=== PATIENT | female | born 1955 | race Caucasian/White ===

== ENCOUNTER 2022-02-27 20:23 | Inpatient (IN) | payer OTHER, BC ==
[2022-02-27] MEDS ORDERED: METHYLPREDNISOLONE 125 MG INJ ONE (21:57)
[2022-02-27] MEDS ORDERED: NA CHLORIDE 0.9% 1,000 ML ONE (21:57)
[2022-02-27] MEDS ORDERED: ALBUTEROL 2.5 MG/3 ML NEB SOL ONE (21:57)
[2022-02-27] MEDS ORDERED: IPRATROPIUM BROM 0.5MG/2.5ML ONE (21:57)
[2022-02-27] MEDS ORDERED: PANTOPRAZOLE 40 MG INJ ONE (21:57)
[2022-02-27] MEDS ORDERED: Levofloxacin 750mg IV 750 MG/150 ML BAG IV ONE (21:58)
--- NOTE | 2022-02-27 22:31 | EDPHYS ---
Physician Documentation [facility] Name: Tammy Bess Age: 66 yrs Sex: Female : 1955 Arrival Date: 02/27/2022 Time: 20:25 Bed 19 Private MD: ED Physician Jamison Campos HPI: 02/27 21:14 This 66 yrs old Female presents to ER via Ambulatory with complaints of Nose radha Bleed. 21:14 The patient presents with a nose bleed, that is apparently anterior, from the right radha nare, occurred from an unknown cause, that is moderate amount causative factors include: unknown. Onset: The symptoms/episode began/occurred just prior to arrival. Modifying factors: The symptoms are alleviated by nothing. the symptoms are aggravated by nothing. Associated signs and symptoms: The patient has no apparent associated signs or symptoms. Severity of symptoms: At their worst the symptoms were moderate in the emergency department the symptoms are unchanged. The patient has not experienced similar symptoms in the past. Historical: - Allergies: 20:40 No Known Allergies; bm7 - PMHx: 20:40 Asthma; Hypertensive disorder; hiatal hernia; bm7 - PSHx: 20:40 None; bm7 - Immunization history:: Adult Immunizations up to date, Client reports receiving the 2nd dose of the Covid vaccine, Client reports receiving the 1st dose of the Covid vaccine. - Social history:: Smoking status: Patient denies any tobacco usage or history of. ROS: 21:15 Constitutional: Negative for fever, chills, and weight loss, Eyes: Negative for injury, radha pain, redness, and discharge, Neck: Negative for injury, pain, and swelling, Cardiovascular: Negative for chest pain, palpitations, and edema, Abdomen/GI: Negative for abdominal pain, nausea, vomiting, diarrhea, and constipation, Back: Negative for injury and pain, : Negative for injury, bleeding, discharge, and swelling, MS/Extremity: Negative for injury and deformity, Skin: Negative for injury, rash, and discoloration, Neuro: Negative for headache, weakness, numbness, tingling, and seizure, Psych: Negative for depression, anxiety, suicide ideation, homicidal ideation, and hallucinations, Allergy/Immunology: Negative for hives, rash, and allergies, Endocrine: Negative for neck swelling, polydipsia, polyuria, polyphagia, and marked weight changes, Hematologic/Lymphatic: Negative for swollen nodes, abnormal bleeding, and unusual bruising. 21:15 ENT: Positive for nose bleed, sinus congestion. 21:15 Respiratory: Positive for cough, shortness of breath. Exam: 21:15 Constitutional: This is a well developed, well nourished patient who is awake, alert, radha and in no acute distress. Head/Face: Normocephalic, atraumatic. Eyes: Pupils equal round and reactive to light, extra-ocular motions intact. Lids and lashes normal. Conjunctiva and sclera are non-icteric and not injected. Cornea within normal limits. Periorbital areas with no swelling, redness, or edema. Neck: Trachea midline, no thyromegaly or masses palpated, and no cervical lymphadenopathy. Supple, full range of motion without nuchal rigidity, or vertebral point tenderness. No Meningismus. Chest/axilla: Normal chest wall appearance and motion. Nontender with no deformity. No lesions are appreciated. Cardiovascular: Regular rate and rhythm with a normal S1 and S2. No gallops, murmurs, or rubs. Normal PMI, no JVD. No pulse deficits. Abdomen/GI: Soft, non-tender, with normal bowel sounds. No distension or tympany. No guarding or rebound. No evidence of tenderness throughout. Back: No spinal tenderness. No costovertebral tenderness. Full range of motion. Female : Normal external genitalia. Skin: Warm, dry with normal turgor. Normal color with no rashes, no lesions, and no evidence of cellulitis. MS/ Extremity: Pulses equal, no cyanosis. Neurovascular intact. Full, normal range of motion. Neuro: Awake and alert, GCS 15, oriented to person, place, time, and situation. Cranial nerves II-XII grossly intact. Motor strength 5/5 in all extremities. Sensory grossly intact. Cerebellar exam normal. Normal gait. Psych: Awake, alert, with orientation to person, place and time. Behavior, mood, and affect are within normal limits. 21:15 ENT: Nose: clotted blood, in right nare, Posterior pharynx: no acute changes, Airway: normal, no evidence of obstruction. 21:15 Cardiovascular: Rate: normal, Rhythm: regular, Pulses: Pulses are 4+ in bilateral radial, brachial, femoral, popliteal, posterior tibial and and dorsalis pedis arteries.. Heart sounds: normal, normal S1and S2, no S3 or S4, no murmur, no rub, no gallop, Edema: is not appreciated, JVD: is not appreciated. 21:15 Respiratory: the patient does not display signs of respiratory distress, Respirations: normal, no acute changes, labored breathing, is not present, Breath sounds: rales, that are moderate, are heard in the right posterior middle lobe and right posterior lower lobe, decreased breath sounds, that are mild, rhonchi, that are mild, are scattered, stridor, is not appreciated, + upper airway congestion. Respiratory rate: 22 23:18 ECG was reviewed by the Attending Physician. [facility] Vital Signs: 20:38 BP 132 / 80; Pulse 90; Resp 20; Temp 99.4(TE); Pulse Ox 94% on R/A; Weight 63.96 kg bm7 (R); Height 5 ft. 6 in. (167.64 cm); Pain 0/10; 23:35 BP 149 / 82; Pulse 102; Resp 23; Pulse Ox 97% on R/A; ja4 20:38 Body Mass Index 22.76 (63.96 kg, 167.64 cm) bm7 Margret Coma Score: 22:50 Eye Response: spontaneous(4). Verbal Response: oriented(5). Motor Response: obeys ja4 commands(6). Total: 15. MDM: 20:55 Patient medically screened. radha 21:19 Differential diagnosis: nasal fracture, trauma, sinusitis, spontaneous epistaxis. Data [facility] reviewed: vital signs, nurses notes, lab test result(s), EKG, radiologic studies, CT scan, plain films. Data interpreted: monitoring manager: rate is 90 beats/min, rhythm is regular, Pulse oximetry: on room air is 94 %. Test interpretation: by ED physician or midlevel provider: ECG, plain radiologic studies. Counseling: I had a detailed discussion with the patient and/or guardian regarding: the historical points, exam findings, and any diagnostic results supporting the discharge/admit diagnosis, the presence of at least one elevated blood pressure reading (>120/80) during this emergency department visit, lab results, radiology results. 02/27 21:14 Order name: Basic Metabolic Panel; Complete Time: 23:38 [facility] 02/27 21:14 Order name: CBC with Diff; Complete Time: 23:38 [facility] 02/27 21:14 Order name: LFT's; Complete Time: 23:38 [facility] 02/27 21:14 Order name: Magnesium; Complete Time: 23:38 [facility] 02/27 21:14 Order name: NT PRO-BNP; Complete Time: 23:38 [facility] 02/27 21:14 Order name: PT-INR; Complete Time: 23:38 [facility] 02/27 21:14 Order name: Troponin HS; Complete Time: 23:38 [facility] 02/27 21:14 Order name: Blood Culture Adult (2) [facility] 02/27 21:14 Order name: Lactate; Complete Time: 23:38 [facility] 02/27 21:14 Order name: SARS RAPID; Complete Time: 23:38 [facility] 02/28 03:07 Order name: CBC with Automated Diff; Complete Time: 05:00 EDMS 02/28 03:42 Order name: ABO/RH no charge; Complete Time: 05:00 EDMS 02/28 03:47 Order name: Manual Differential; Complete Time: 05:00 EDMS 02/28 03:52 Order name: Basic Metabolic Panel; Complete Time: 05:00 EDMS 02/27 21:14 Order name: XRAY Chest (1 view); Complete Time: 22:55 [facility] 02/27 21:14 Order name: EKG; Complete Time: 21:16 [facility] 02/27 21:14 Order name: Cardiac monitoring; Complete Time: 23:22 [facility] 02/27 21:14 Order name: EKG - Nurse/Tech; Complete Time: 23:22 [facility] 02/27 21:14 Order name: IV Saline Lock; Complete Time: 23:22 [facility] 02/27 21:14 Order name: CT Chest For PE Angio radha 02/28 03:52 Order name: NT PRO-BNP; Complete Time: 05:00 EDMS 02/28 04:55 Order name: Type and Screen; Complete Time: 05:00 EDNE 02/27 21:14 Order name: Labs collected and sent; Complete Time: 23:22 [facility] 02/27 21:14 Order name: O2 Per Protocol; Complete Time: 23:22 [facility] 02/27 21:14 Order name: O2 Sat Monitoring; Complete Time: 23:22 [facility] EC:18 Rate is 100 beats/min. Rhythm is regular. QRS [place] is Normal. [place] interval is normal. radha QRS interval is normal. QT interval is normal. No Q waves. T waves are Normal. No ST changes noted. Clinical impression: NSR w/ Non-specific ST/T Changes, LVH, and No evidence of ischemia. Interpreted by me. Reviewed by me. Administered Medications: 23:39 Discontinued: NS 0.9% 1000 ml IV at 125 ml/hr continuous radha 22:06 Drug: Albuterol - atroVENT (ipratropium) (3:1) (2.5 mg - 0.5 mg) 3 ml Route: Nebulizer; 7 23:21 Drug: levofloxacin 750 mg Volume: 150 ml; Route: IVPB; Infused Over: 90 mins; Site: ja4 left wrist; 23:21 Drug: ProTONIX (pantoprazole) 40 mg Route: IVP; Site: left wrist; ja4 23:21 Drug: SOLU-Medrol (methylPrednisoLONE) 125 mg Route: IVP; Site: left wrist; ja4 23:22 Drug: NS 0.9% 1000 ml Route: IV; Rate: 125 ml/hr; Site: left wrist; ja4 02/28 00:43 Drug: NS 0.9% with KCl 20 mEq/L 1000 ml Route: IV; Rate: 125 ml/hr; Site: left wrist; ja4 00:43 Drug: Mucomyst - Acetylcysteine 600 mg Route: PO; ja4 00:44 Drug: Potassium Effervescent Tablet 50 mEq Route: PO; ja4 Disposition Summary: 02/27/22 22:30 Hospitalization Ordered Hospitalization Status: Inpatient Admission radha Provider: Rojelio Overton radha Condition: Fair radha Problem: new radha Symptoms: have improved radha Bed/Room Type: Standard radha Location: [facility] ER HOLD(02/28/22 01:12) Room Assignment: ERHOLD-(02/28/22 01:12) cg Diagnosis - Epistaxis radha - Hemoptysis radha - COPD/ Chronic obstructive pulmonary disease, unspecified radha - Hypoxemia radha - Congenital hiatus hernia radha - Pneumonia due to other specified bacteria - left lower pna radha - Hypokalemia radha - Unspecified kidney failure radha Forms: - Medication Reconciliation Form radha - SBAR form radha Signatures: Dispatcher [employer] EDJamison Whiting MD MD cha Waters, Shelly, FNP-C SECURITY SUPERVISOR-Yana Zapata RN RN Elinor Moeller RN RN 7 Demetrius oRb RN RN ja4 Corrections: (The following items were deleted from the chart) 02/27 20:42 20:40 PMHx: None; chelle corbett 02/28 01:12 02/27 22:30 Telemetry/MedSurg (Inpatient) radha 02/28 01:12 02/27 22:30 [facility] [place][note 2]
--- NOTE | 2022-02-27 22:31 | ER ---
Nurse's Notes [facility] Name: Tammy Bess Age: 66 yrs Sex: Female : 1955 Arrival Date: 02/27/2022 Time: 20:25 Bed 19 Private MD: Diagnosis: Epistaxis;Hemoptysis;COPD/ Chronic obstructive pulmonary disease, unspecified;Hypoxemia;Congenital hiatus hernia;Pneumonia due to other specified bacteria-left lower pna;Hypokalemia;Unspecified kidney failure Presentation: 02/27 20:38 Chief complaint: Patient states: I started having a nose bleed tonight and its going bm7 down my throat irritating my bronchial asthma. Last time I had a nosebleed like this I ended up having a bleeding ulcer. I also have a hiatal hernia that needs to be repaired. Coronavirus screen: Client presents with at least one sign or symptom that may indicate coronavirus-19. Standard/surgical mask placed on the client. Ebola Screen: No symptoms or risks identified at this time. Initial Sepsis Screen: Does the patient meet any 2 criteria? No. Patient's initial sepsis screen is negative. Does the patient have a suspected source of infection? No. Patient's initial sepsis screen is negative. Risk Assessment: Do you want to hurt yourself or someone else? Patient reports no desire to harm self or others. Onset of symptoms was February 27, 2022. 20:38 Method Of Arrival: Ambulatory bm7 20:38 Acuity: NASIM 3 bm7 Triage Assessment: 20:40 General: Appears in no apparent distress. uncomfortable, Behavior is calm, cooperative, bm7 appropriate for age. Pain: Denies pain. EENT: Nares with bleeding noted. Neuro: No deficits noted. Cardiovascular: No deficits noted. Respiratory: Reports shortness of breath on exertion cough that is non-productive, pain with cough Airway is patent Respiratory effort is even, unlabored, Respiratory pattern is regular, symmetrical, Breath sounds are coarse bilaterally. GI: No deficits noted. No signs and/or symptoms were reported involving the gastrointestinal system. : No deficits noted. No signs and/or symptoms were reported regarding the genitourinary system. Derm: No deficits noted. No signs and/or symptoms reported regarding the dermatologic system. Musculoskeletal: No deficits noted. No signs and/or symptoms reported regarding the musculoskeletal system. Historical: - Allergies: 20:40 No Known Allergies; bm7 - PMHx: 20:40 Asthma; Hypertensive disorder; hiatal hernia; bm7 - PSHx: 20:40 None; bm7 - Immunization history:: Adult Immunizations up to date, Client reports receiving the 2nd dose of the Covid vaccine, Client reports receiving the 1st dose of the Covid vaccine. - Social history:: Smoking status: Patient denies any tobacco usage or history of. Screenin:50 Abuse screen: Denies threats or abuse. Nutritional screening: No deficits noted. ja4 Tuberculosis screening: Never had TB. Possible symptoms: None. Fall Risk IV access (20 points). Assessment: 22:50 General: Appears distressed, Behavior is cooperative, appropriate for age, anxious. ja4 Neuro: No deficits noted. Respiratory: Airway is patent Respiratory effort is labored, Respiratory pattern is symmetrical, tachypnea Sputum is. Vital Signs: 20:38 BP 132 / 80; Pulse 90; Resp 20; Temp 99.4(TE); Pulse Ox 94% on R/A; Weight 63.96 kg bm7 (R); Height 5 ft. 6 in. (167.64 cm); Pain 0/10; 23:35 BP 149 / 82; Pulse 102; Resp 23; Pulse Ox 97% on R/A; ja4 20:38 Body Mass Index 22.76 (63.96 kg, 167.64 cm) bm7 Vitals: 22:50 Cardiac Rhythm Assessment Sinus arrythmia. ja4 Margret Coma Score: 22:50 Eye Response: spontaneous(4). Verbal Response: oriented(5). Motor Response: obeys ja4 commands(6). Total: 15. ED Course: 20:25 Patient arrived in ED. as 20:40 Triage completed. bm7 20:40 Arm band placed on right wrist. bm7 20:55 Jamison Campos MD is Attending Physician. radha 22:11 Morales Gill RN is Primary Nurse. ke1 22:25 XRAY Chest (1 view) In Process Unspecified. EDMS 22:27 Rojelio Overton MD is Hospitalizing Provider. radha 22:50 Patient has correct armband on for positive identification. Bed in low position. Call ja4 light in reach. Side rails up X 1. 22:50 No provider procedures requiring assistance completed. Inserted saline lock: 20 gauge ja4 in left wrist, using aseptic technique. 23:22 Basic Metabolic Panel Sent. 23:22 LFT's Sent. 4 23:22 Magnesium Sent. 4 23:22 NT PRO-BNP Sent. 23: Troponin HS Sent. 02/28 00:19 CT Chest For PE Angio In Process Unspecified. EDAZ 14:21 IV discontinued, intact, bleeding controlled, No redness/swelling at site. Pressure mb8 dressing applied. Administered Medications: 02/27 23:39 Discontinued: NS 0.9% 1000 ml IV at 125 ml/hr continuous [facility] 22:06 Drug: Albuterol - atroVENT (ipratropium) (3:1) (2.5 mg - 0.5 mg) 3 ml Route: Nebulizer; [facility] 23:21 Drug: levofloxacin 750 mg Volume: 150 ml; Route: IVPB; Infused Over: 90 mins; Site: ja4 left wrist; 23:21 Drug: ProTONIX (pantoprazole) 40 mg Route: IVP; Site: left wrist; 23:21 Drug: SOLU-Medrol (methylPrednisoLONE) 125 mg Route: IVP; Site: left wrist; 4 23:22 Drug: NS 0.9% 1000 ml Route: IV; Rate: 125 ml/hr; Site: left wrist; 4 02/28 00:43 Drug: NS 0.9% with KCl 20 mEq/L 1000 ml Route: IV; Rate: 125 ml/hr; Site: left wrist; ja4 00:43 Drug: Mucomyst - Acetylcysteine 600 mg Route: PO; 4 00:44 Drug: Potassium Effervescent Tablet 50 mEq Route: PO; 4 Medication: 02/27 22:50 VIS not applicable for this client. ja4 Outcome: 22:30 Decision to Hospitalize by Provider. [facility] 02/28 01:48 Admitted to ER Hold. Please see [facility] for further documentation. [facility] 14:21 Condition: stable mb8 14:21 Patient left the ED. mb8 Signatures: Dispatcher [employer] EDMS Jamison Campos MD MD cha Martinez, Amelia as McCarthy, Brittany, RN RN bm7 Morales Gill RN RN ke1 Demetrius Rob RN RN ja4 Terrence Dior RN RN mb8 Corrections: (The following items were deleted from the chart) 02/27 20:42 20:40 PMHx: None; bm7 bm7
--- NOTE | 2022-02-27 22:32 | RAD REPORT ---
EXAM DESCRIPTION: RAD - Chest Single View - 02/27/2022 10:23 pm CLINICAL HISTORY: Cough COMPARISON: None TECHNIQUE: AP portable chest image was obtained 02/27/2022 10:23 pm . FINDINGS: Patchy interstitial and alveolar opacities are present in the lower left lung field. In th e acute clinical setting an early pneumonia is suspected. Patient has a prominent interstitial patter n that believed to be baseline. Heart and vasculature are normal. No measurable pleural effusion and no pneumothorax. No acute bony abnormality seen. No acute aortic findings suspected. IMPRESSION: Patchy left base opacification suspicious for early pneumonia.
[2022-02-27 23:12] LABS: Absolute Lymphocytes (CBC) 1.4 K/uL (0.7-4.9); Hematocrit 30.2 % (36.0-45.0); Lymphocytes % 15.3 % (15.3-44.8); MCV 73.8 fL (80-100); MPV 6.6 fL (7.6-11.3)
[2022-02-27 23:13] LABS: Protime INR 1.2
[2022-02-27 23:23] LABS: SARS-CoV-2 Antigen Rapid Res Negative (Negative)
[2022-02-27 23:34] LABS: ALT/SGPT 18 U/L (12-78); AST/SGOT 21 U/L (15-37); Albumin 2.9 g/dL (3.4-5.0); Alkaline Phosphatase 80 U/L (45-117); BUN Blood Urea Nitrogen 27 mg/dL (7-18); Bicarbonate 24 mmol/L (21-32); Bilirubin Total 0.2 mg/dL (0.2-1.0); Glomerular Filtration Rate 43 ml/min (=/>90); Glucose Level 99 mg/dL (74-106); Magnesium 1.9 mg/dL (1.8-2.4); NT PRO-BNP 359 pg/mL (<125); Protein, Total 7.1 g/dL (6.4-8.2); Sodium Level 133 mmol/L (136-145); Troponin High Sensitivity 20.8 pg/mL (<58.9)
[2022-02-27 23:35] LABS: Bilirubin Direct < 0.1 mg/dL (0-0.2); Potassium 2.8 mmol/L (3.5-5.1)
[2022-02-28] MEDS ORDERED: NS KCL 20MEQ 1,000 ML IV ONE ×2 (00:46→09:48)
[2022-02-28] MEDS ORDERED: POTASSIUM 25 MEQ EFFERV TAB ONE (00:46)
[2022-02-28] MEDS ORDERED: ACETYLCYST 6,000 MG/30 ML VIAL ONE (00:49)
[2022-02-28] MEDS ORDERED: HYDROCODONE/APAP 5/325 MG TAB PO PRN (01:34)
[2022-02-28] MEDS ORDERED: ALBUTEROL 2.5 MG/3 ML NEB SOL NEB PRN (01:34)
[2022-02-28] MEDS ORDERED: IPRATROPIUM BROM 0.5MG/2.5ML NEB PRN (01:34)
[2022-02-28] MEDS: NS KCL 20MEQ 20 MEQ/1,000 ML BAG IV SCH ×2 (01:34→09:34)
[2022-02-28] MEDS ORDERED: ONDANSETRON 4 MG/2 ML VIAL IV PRN (01:34)
[2022-02-28] MEDS ORDERED: ACETAMINOPHEN 500 MG TAB PO PRN (01:34)
[2022-02-28 01:46] VITALS: BMI 22.7
[2022-02-28 02:59] LABS: Absolute Lymphocytes (CBC) 0.4 K/uL (0.7-4.9); Hematocrit 28.2 % (36.0-45.0); MCV 73.7 fL (80-100); MPV 6.7 fL (7.6-11.3); RBC Red Blood Cell Count 3.83 M/uL (3.86-4.86)
--- NOTE | 2022-02-28 03:23 | P.HP ---
Certification for Inpatient Patient admitted to: Inpatient With expected LOS: >2 Midnights Patient will require the following post-hospital care: None Practitioner: I am a practitioner with admitting privileges, knowledge of patient current condition, hospital course, and medical plan of care. Services: Services provided to patient in accordance with Admission requirements found in Title 42 Section 412.3 of the Code of Federal Regulations <Li Mosley - Last Filed: 02/28/22 03:30> Patient History Date of Service: 02/28/22 Primary Care Provider: Dr. Saint Rocha at [facility] Reason for admission: Ms. Bess is a 66yo female who presents to [facility] with epistaxis History of Present Illness: Ms. Bess is a 66yo female who presents to [facility] with epistaxis and hemoptysis. One year ago Ms. Bess was seen at [facility] by Dr. Rajput (GI) for hematemesis and anemia secondary to an esophageal ulcer. She was diagnosed at that time with a hiatal hernia. In process for this surgical procedure she has had frequent endoscopic procedures and four months ago was declared ready for the hiatal hernia repair. All bleeding had stopped according to pt history. Ms. Bess needed cardiology clearance and saw Dr. Green (Cardiology). She received cardiology clearance last week. Ms. Bess became short of breath with inspiratory and expiratory wheezing and was seen again at [facility] by Dr. Mayers (Pulmonology) on this past Monday. She was diagnosed with severe bronchial asthma and prescriptions for inhalers, nebulizer treatments, and antibiotics were sent to her pharmacy. Ms. Bess states the pharmacy made a mistake and her medications were not filled. She arrives today in the ED with existaxis and hemoptysis. She was diagnosed in the ED with pneumonia and given Levaquin. CT negative for PE but positive for multifocal small pulmonary opacities. Transfer to [facility] for continuity of care was attempted. Transfer declined second to capacity. Home medications list reviewed: Yes (Pt takes Adderall, HCTZ, Mucinex DM. She w eaned herself from Prozac. ) - Past Medical/Surgical History Has patient received pneumonia vaccine in the past: No Diabetic: No -: asthma -: esophageal ulcer -: hiatal hernia <Li Mosley - Last Filed: 02/28/22 03:30> Date of Service: 03/05/22 - Past Medical/Surgical History Past Surgical History: Patient denies surgical history - Family History Family History: Reviewed- Non-Contributory - Social History Smoking Status: Never smoker Alcohol use: No Place of Residence: Home <Renny Koo - Last Filed: 03/05/22 15:03> Allergies No Known Allergies Allergy (Unverified 02/28/22 01:34) Home Medications: predniSONE [Deltasone*] 10 mg PO BID 10 Days #20 tab 02/28/22 Review of Systems General: Malaise Eyes: Unremarkable ENT: Unremarkable Respiratory: Cough, Shortness of Breath, Hemoptysis, Wheezing Cardiovascular: Unremarkable Gastrointestinal: Nausea Genitourinary: Unremarkable Musculoskeletal: Unremarkable Integumentary: Unremarkable Neurological: Unremarkable Lymphatics: Unremarkable <Li Mosley - Last Filed: 02/28/22 03:30> Physical Examination - Physical Exam General: Alert, In no apparent distress, Oriented x3 HEENT: Atraumatic, Normocephalic Neck: Supple, 2+ carotid pulse no bruit Respiratory: Crackles/rales Cardiovascular: No edema, Normal pulses, Systolic murmur Capillary refill: <2 Seconds Gastrointestinal: Normal bowel sounds, No tenderness Musculoskeletal: No clubbing, No swelling Integumentary: No rashes, No breakdown Neurological: Normal speech, Normal strength at 5/5 x4 extr Lymphatics: No axilla or inguinal lymphadenopathy - Studies Laboratory Data (last 24 hrs) 02/27/22 22:50: PT 13.2 H, INR 1.20 02/27/22 22:50: WBC 9.40, Hgb 9.9 L, Hct 30.2 L, Plt Count 300 02/27/22 22:50: Sodium 133 L, Potassium 2.8 L*, BUN 27 H, Creatinine 1.36 H, Glucose 99, Magnesium 1.9, Total Bilirubin 0.2, AST 21, ALT 18, Alkaline Phosphatase 80 <Li Mosley - Last Filed: 02/28/22 03:30> - Studies Microbiology Data (last 24 hrs): 02/27/22 22:55 Blood - Blood Aerobic Blood Culture - Final No growth in 5 days. 02/27/22 22:55 Blood - Blood Anaerobic Blood Culture - Final No growth in 5 days. 02/27/22 22:50 Blood - Blood Aerobic Blood Culture - Final No growth in 5 days. 02/27/22 22:50 Blood - Blood Anaerobic Blood Culture - Final No growth in 5 days. <Renny Koo - Last Filed: 03/05/22 15:03> Assessment and Plan - Problems (Diagnosis) (1) Pneumonia Status: Acute Plan: Scheduled neb treatments, will try to avoid steroids secondary to GIB history, broad spectrum antibiotics. Covid negative. Qualifiers: Laterality: bilateral Lung location: unspecified part of lung (2) Epistaxis Status: Acute Plan: Avoid nasal trauma, soft nasal packing with clamp and ice to bridge of nose prn bleeding, avoid nasal steroids. Moisturize nares prn. Will re-eval H/H in the am. Discharge Plan: Home Plan to discharge in: 72 Hours - Advance Directives Does patient have a Living Will: No Does patient have a Durable POA for Healthcare: No - Code Status/Comfort Care Code Status Assessed: Yes (Full) <Li Mosley - Last Filed: 02/28/22 03:30> Time Spent Managing Pts Care (In Minutes): 70 <Renny Koo - Last Filed: 03/05/22 15:03>
[2022-02-28 03:36] LABS: Potassium 4.1 mmol/L (3.5-5.1)
[2022-02-28 03:47] LABS: Blood Morphology Comment NOT SEEN (NOT SEEN); Platelet Estimate ADEQ
--- NOTE | 2022-02-28 08:07 | EKG ---
Test Date: 2022-02-27 Test Time: 23:00:06 Paper Rewinder Operator: LILY MEASUREMENT RESULTS: Intervals: Rate: 100 TN: 146 QRSD: 86 QT: 392 QTc: 505 [place]: P: 23 TN: 146 QRS: 63 T: 60 INTERPRETIVE STATEMENTS: Normal sinus rhythm Possible Left atrial enlargement Left ventricular hypertrophy Prolonged QT Abnormal ECG No previous ECG available for comparison Electronically Signed On 02-28-22 08:06:08 CDT by See Alvarez
--- NOTE | 2022-02-28 12:05 | P.CNS ---
Date of Consult: 02/28/22 Reason for Consult: Shortness of breath and epistaxis Primary Care Provider: Dr. Saint Rocha at [facility] Chief Complaint: Ms. Bess is a 66yo female who presents to [facility] with epistaxis History of Present Illness: Patient is 66 years old admitted with epistaxis and is she was recently diagnosed with asthma did not receive her medications get her to undergo operation for a hiatal hernia patient had numerous endoscopies with a history of GI bleed received a cardiology clearance denies any fever or chills and was using Advair at home the scan shows bilateral opacities Allergies No Known Allergies Allergy (Unverified 02/28/22 01:34) - Past Medical/Surgical History Diabetic: No -: asthma -: esophageal ulcer -: hiatal hernia Review of Systems 10-point ROS is otherwise unremarkable Physical Examination Temp Pulse Resp BP Pulse Ox 86 16 136/90 97 02/28/22 07:26 02/28/22 07:26 02/28/22 07:26 02/28/22 07:26 General: Alert, In no apparent distress, Oriented x3 Respiratory: Clear to auscultation bilaterally Cardiovascular: No edema, Normal pulses, Regular rate/rhythm Gastrointestinal: Normal bowel sounds, Soft and benign Laboratory Data (last 24 hrs) 02/27/22 22:50: PT 13.2 H, INR 1.20 02/27/22 22:50: WBC 9.40, Hgb 9.9 L, Hct 30.2 L, Plt Count 300 02/27/22 22:50: Sodium 133 L, Potassium 2.8 L*, BUN 27 H, Creatinine 1.36 H, Glucose 99, Magnesium 1.9, Total Bilirubin 0.2, AST 21, ALT 18, Alkaline Phosphatase 80 - Problems (1) Pneumonia Current Visit: Yes Status: Acute Plan: Age 66 [address] scan shows bilateral patchy changes predominantly subcu pleural on the left side patient has mild microcytic anemia and hypokalemia vital signs oxygenation all stable patient is stable for discharge on low-dose prednisone continue with Advair we will add levofloxacin for atypical coverage She is so far she has not had any further epistaxis stable for discharge
[2022-02-28 14:42] VITALS: TEMP 99.4
[2022-02-28 14:44] VITALS: BP 149/82; O2SAT 97
--- NOTE | 2022-02-28 20:27 | RAD REPORT ---
EXAM DESCRIPTION: CT - Chest For Pe Angio - 02/28/2022 6:50 am CLINICAL HISTORY: Hemoptysis. COMPARISON: Portable. TECHNIQUE: CTA of the chest was performed following intravenous administration of iodinated contrast . Axial soft tissue and lung window, and coronal and sagittal soft tissue window reconstructions were created and sent to PACS. 3D postprocessing was performed on an independent workstation, with images sent to PACS for subsequen t review. This exam was performed according to our departmental dose-optimization program, which includes autom ated exposure control, adjustment of the mA and/or kV according to patient size and/or use of iterati ve reconstruction technique. FINDINGS: Vascular: Slightly suboptimal contrast timing for evaluation of the pulmonary arteries. Mo derate streak artifact in the right main pulmonary trunk and right upper lobe pulmonary arteries due to contrast in the adjacent SVC. No CT evidence of acute pulmonary thromboembolism within these limit ations. No evidence of aortic aneurysm or dissection. Lungs and pleura: Multifocal small groundglass opacities with associated interstitial thickening thro ughout both lungs. No pleural effusion. No pneumothorax. Mild diffuse bronchial wall thickening. Mediastinum and neck: Mild mediastinal and bilateral hilar lymphadenopathy. Unremarkable appearance o f the thyroid gland. Cardiac: No cardiomegaly or pericardial effusion. Abdomen: Tiny sliding-type hiatal hernia. Borderline hepatic steatosis. Incidentally noted splenic ar halle aneurysm measuring 1.3 cm, partially calcified, partially thrombosed. Musculoskeletal: No concerning osseous abnormality. IMPRESSION: 1. No CTA evidence of acute pulmonary thromboembolism, within the limitations of this exam. 2. Multifocal small pulmonary opacities concerning for infectious/inflammatory process. 3. Recommend follow-up chest CT to ensure resolution. Electronically signed by: Rina Mancini MD 02/28/2022 12:34 AM CDT Due to temporary technical issues with the PACS/Fluency reporting system, reports are being signed by the in house radiologists without review as a courtesy to insure prompt reporting. The interpreting radiologist is fully responsible for the content of the report
[2022-02-28] MEDS ORDERED: Levofloxacin500mg IV 500 MG/100 ML BAG IV SCH (22:15)
[2022-03-01] MEDS ORDERED: LEVOFLOXACIN 750MG/D5W 150 ML IV SCH (21:00)
--- NOTE | 2022-03-07 19:08 | P.DS ---
Admission Date: 02/28/22 Discharge Date: 02/28/22 Primary Care Provider: Dr. Saint Rocha at [facility] Disposition: ROUTINE DISCHARGE Discharge Condition: GOOD Reason for Admission: Ms. Bess is a 66yo female who presents to [facility] with epistaxis Consultations: Pulmonology - Dr. Hernandez Brief History of Present Illness: 66yo female who presents to [facility] with epistaxis and hemoptysis. One year ago Ms. Bess was seen at [facility] by Dr. Rajput (GI) for hematemesis and anemia secondary to an esophageal ulcer. She was diagnosed at that time with a hiatal hernia. In process for this surgical procedure she has had frequent endoscopic procedures and four months ago was declared ready for the hiatal hernia repair. All bleeding had stopped according to pt history. Ms. Bess needed cardiology clearance and saw Dr. Green (Cardiology). She received cardiology clearance last week. Ms. Bess became short of breath with inspiratory and expiratory wheezing and was seen again at [facility] by Dr. Mayers (Pulmonology) on this past Monday. She was diagnosed with severe bronchial asthma and prescriptions for inhalers, nebulizer treatments, and antibiotics were sent to her pharmacy. Ms. Bess states the pharmacy made a mistake and her medications were not filled. She arrives today in the ED with existaxis and hemoptysis. She was diagnosed in the ED with pneumonia and given Levaquin. CT negative for PE but positive for multifocal small pulmonary opacities. Transfer to [facility] for continuity of care was attempted. Transfer declined second to capacity. Hospital Course: Problem List Epistaxis Community-acuired pneumonia Asthma Patient presented with epistaxis and cough. Found to have asthma with some small opacities in bilateral lung bases. Patient's bleeding stopped with holding pressure. Pulmonology was consulted and deemed patient stable for discharge home. 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 She is also prescribed prednisone and duonebs with nebulizer, which will be de livered and taught to her at home. Follow up with PCP within 1 week Follow up with Pulmonology in ~1 week. If bleeding occurs again, recommend holding pressure. Can try afrin nasal spray - 2 sprays in each nostril one time and hold pressure. Vital Signs/Physical Exam: Temp Pulse Resp BP Pulse Ox 99.4 F 102 H 23 H 149/82 H 97 02/28/22 14:40 02/28/22 14:42 02/28/22 14:42 02/28/22 14:42 02/28/22 12:00 General: Alert, In no apparent distress, Oriented x3 HEENT: EOMI, Sclerae nonicteric Respiratory: Clear to auscultation bilaterally, Normal air movement Cardiovascular: No edema, Regular rate/rhythm Gastrointestinal: Soft and benign, Non-distended, No tenderness Musculoskeletal: No contractures, No tenderness Integumentary: No rashes, No significant lesion Neurological: Normal speech, Normal affect Laboratory Data at Discharge: WBC 8.10 K/uL (4.3-10.9) 02/28/22 02:16 Hgb 9.4 g/dL (12.0-15.0) L 02/28/22 02:16 Hct 28.2 % (36.0-45.0) L 02/28/22 02:16 Plt Count 276 K/uL (152-406) 02/28/22 02:16 PT 13.2 SECONDS (9.5-12.5) H 02/27/22 22:50 INR 1.20 02/27/22 22:50 Sodium 133 mmol/L (136-145) L 02/28/22 02:16 Potassium 4.1 mmol/L (3.5-5.1) 02/28/22 02:16 BUN 23 mg/dL (7-18) H 02/28/22 02:16 Creatinine 1.26 mg/dL (0.55-1.3) 02/28/22 02:16 Glucose 133 mg/dL (74-106) H 02/28/22 02:16 Magnesium 1.9 mg/dL (1.8-2.4) 02/27/22 22:50 Total Bilirubin 0.2 mg/dL (0.2-1.0) 02/27/22 22:50 AST 21 U/L (15-37) 02/27/22 22:50 ALT 18 U/L (12-78) 02/27/22 22:50 Alkaline Phosphatase 80 U/L (45-117) 02/27/22 22:50 Home Medications: predniSONE [Deltasone*] 10 mg PO BID 10 Days #20 tab 02/28/22 New Medications: predniSONE [Deltasone*] 10 mg PO BID 10 Days #20 tab Physician Discharge Instructions: Patient presented with epistaxis and cough. Found to have asthma with some small opacities in bilateral lung bases. Patient's bleeding stopped with holding pressure. Pulmonology was consulted and deemed patient stable for discharge home. 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 She is also prescribed prednisone and duonebs with nebulizer, which will be delivered and taught to her at home. Follow up with PCP within 1 week Follow up with Pulmonology in ~1 week. If bleeding occurs again, recommend holding pressure. Can try afrin nasal spray - 2 sprays in each nostril one time and hold pressure. Followup: OOT,OOT [Primary Care Provider] - Time spent managing pt's care (in minutes): 40
== END 2022-02-28 14:20 | disposition home or self-care (01) | DRG 194 ==
LOC: ER 20:23 → ERHOLD 02-28 00:56
PROVIDERS: ADMIT Hospitalist; ATTEND Hospitalist
DX: J18.9 Pneumonia, unspecified organism (principal); R04.2 Hemoptysis; R04.0 Epistaxis; J45.909 Unspecified asthma, uncomplicated; Z79.52 Long term (current) use of systemic steroids; Z20.822 Contact with and (suspected) exposure to COVID-19
CPT/HCPCS: 36415; 71045; 71275; 80048; 80076; 83605; 83735; 83880; 84484; 85025; 85610; 86850; 86900; 86901; 87040; 87811; 93005; 94640; 96374; 96375; 99285; C9113; J2930; J3480; J7030; Q9967

== ENCOUNTER 2022-07-03 18:35 | Emergency (ER) | payer OTHER, BC ==
--- OUTSIDE RECORDS SUMMARY | 2022-07-03 18:42 | XMS REPORT | Continuity of Care Document ---
:1955 Author Organization [facility] t Address [address] [place] [address] Care Team Providers Name Role Phone [facility] Primary [facility] Physician ABDON GREEN Attending Clinician Unavailable JUAN CREWS Attending Clinician Unavailable ANA العراقي Attending Clinician Unavailable ANA العراقي Attending Clinician Unavailable Abdon Green Attending Clinician ABDON GREEN Attending Clinician Unavailable Lucia Mayers Attending Clinician LUCIA MAYERS Attending Clinician Unavailable JUAN CREWS Attending Clinician Unavailable Juan Crews Attending Clinician Ana العراقي Attending Clinician Laina Rajput Attending Clinician LAINA RAJPUT Attending Clinician Unavailable MICHELLE RODRIGUEZ Attending Clinician Unavailable Michelle Rodriguez Attending Clinician oDlores De Leon Attending Clinician DOLORES DE LEON Attending Clinician Unavailable MICHELLE RODRIGUEZ Admitting Clinician Unavailable Michelle Rodriguez Admitting Clinician Payers Payer Name Policy Type Policy Number Effective Date Expiration Date S sameera [id number] PPO AND [id number] 2007 2024 00:00:00 OUT OF STATE 00:00:00 Problems Condition Condition Condition Status Onset Resolution Last Treating Co mments Source Name Details Category Date Date Treatment Clinician Date CHEST CHEST Diagnosis Active 2022-02-21 Mem oria PAIN, PAIN, 02-16 08:53:00 l UNSPECIFIE UNSPECIFIE 00:00: Elias murphy D, D, 00 SHORTNESS SHORTNESS OF BR OF BR Active 02/16/2022 [facility] 4 WK FU 4 WK FU Diagnosis Active 2022-04-18 Memoria Active 02-16 12:03:00 l 02/16/2022 00:00: Drew guillaume [address] REF BY REF BY Diagnosis Active 2022-02-[address] 12-22 15:08:00 l HAIR BERNAL 00:00: Bryce CARDIAC DE LEON/ 00 CLEARAN CARDIAC CLEARAN Active 12/22/2021 [facility] INTERSTITI INTERSTIT Diagnosis Active 2021-12-16 Catherine AL IAL 5-18 14:09:00 l PULMONARY PULMONARY 00:00: Herm ankita DISEASE DISEASE 00 Active 11/24/2021 [facility] GERD K44.9 GERD Diagnosis Active 2021-10-29 Memoria K20.91 K44.9 4-04 07:38:00 l K20.91 00:00: Bryce Active 00 10/11/2021 [facility] UNK UNK Diagnosis Active 2021-09-03 Mem oria Active 09-03 08:07:00 l 09/03/2021 00:00: Drew guillaume [address] ESOPHAGEAL ESOPHAGEA Diagnosis Active 2022-0 2021-09-03 Memoria STRICTURE L 1-06 14:29:00 l STRICTURE 00:00: Bryce Active 00 07/15/2021 [facility] PHONE PHONE Diagnosis Active 2021-07-20 Mem oria VISIT VISIT 07-13 13:52:00 l Active 00:00: [place] 07/13/2021 00 [facility] ULCERATIVE ULCERATIV Diagnosis Active 2020-072021-06-14 Memoria ESOPHAGITI E 12:33:00 l S, HIATAL ESOPHAGITI 00:00: Her bhagat HERNIA, H S, HIATAL 00 HERNIA, H Active 04/30/2021 [facility] ULCER OF ULCER OF Diagnosis Active 2021-04-12 Memoria ESOPHAGUS ESOPHAGUS 04-06 16:35:00 l WITHOUT WITHOUT 00:00: Bryce BLEEDING, BLEEDING, 00 ESS ESS Active 04/06/2021 [facility] ABDOMINAL ABDOMINAL Diagnosis Active 2021-04-08 Memoria PAIN PAIN 04-06 11:34:00 l DISPHAGIA DISPHAGIA 00:00: Herm ankita Active 00 04/06/2021 [facility] GERD GERD Diagnosis Active 2021-03-31 Mem oria Active 03-26 11:45:00 l 03/26/2021 00:00: Drew guillaume [facility] SENT BY SENT BY Diagnosis Active 2021-01-19 Memoria PCP FOR PCP FOR 01-19 16:42:00 l BLOODY BLOODY 00:00: [place] STOOL STOOL 00 Active 01/19/2021 [facility] UPPER GO UPPER GO Diagnosis Active 2021-01-20 Memoria BLEED; BLEED; 01-19 11:32:00 l ANEMIA; ANEMIA; 00:00: Bryce PEPTIC PEPTIC 00 ULCER DIS ULCER DIS Active 01/19/2021 [facility] R92.2 R92.2 Diagnosis Active 2020-11-10 Mem oria INCONCLUSI INCONCLUSI 11-05 11:59:00 l VE VE 00:00: [place] MAMMOGRAM MAMMOGRAM 00 Active 11/05/2020 [facility] Z12.31 Z12.31 Diagnosis Active 2020-11-03 Me moria ROUTINE, ROUTINE, 10-27 10:52:00 l M81.0 M81.0 00:00: Bryce OSTEOPOROS OSTEOPOROS 00 IS IS Active 10/27/2020 [facility] Z12.31 Z12.31 Diagnosis Active 2020-11-03 Me moribev ROUTINE, ROUTINE, 10-27 10:25:00 l AGE-RELATE AGE-RELATE 00:00: He katherine D D 00 OSTEOPOROS OSTEOPOROS I I Active 10/27/2020 [facility] R05 COUGH R05 COUGH Diagnosis Active 2017-072018-04-10 Memoria Active 0 10:19:00 l 04/09/2018 00:00: Drew guillaume [facility] [place] R92.8 R92.8 Diagnosis Active 2016-072017-04-18 Mem oria OTHER OTHER 0 13:58:00 l ABNORMAL ABNORMAL 00:00: Drew guillaume AND AND 00 INCONCLUSI INCONCLUSI VE F VE F Active 04/14/2017 [facility] N63 N63 Diagnosis Active 2017-02-22 Mem oria Active 02-15 10:11:00 l 02/15/2017 00:00: Drew guillaume 00 [facility] LUMP IN LUMP IN Diagnosis Active 2017-02-22 Memoria BREAST, BREAST, 02-15 15:38:00 l OTHER OTHER 00:00: [place] OSTEOPOROS OSTEOPOROS 00 IS IS Active 02/15/2017 [facility] Diaphragma Diaphragm Problem 2018-10-28 Memoria tic hernia atic 14:11:30 l without hernia Bryce obstructio without n or obstructio gangrene n or gangrene 10/28/2018 [facility] Anxiety Anxiety Problem Active 2022-02-24 Me moria (finding) (finding) 00:07:16 l Active Bryce Problem 02/24/2022 [facility] Asthma Asthma Problem Active 2022-02-24 Chele samara (disorder) (disorder) 00:07:16 l Active [place] Problem 02/24/2022 [facility] Gastroesop Gastroeso Problem Active 2022-02-24 Memoria hageal phageal 00:07:16 l reflux reflux Bryce disease disease (disorder) (disorder) Active Problem 02/24/2022 [facility] Hypertensi Hypertens Problem Active 2022-02-24 Memoria ve jayla 00:07:16 l disorder, disorder, Herm ankita systemic systemic arterial arterial (disorder) (disorder) Active Problem 02/24/2022 [facility] Ulcerative Ulcerativ Problem Active 2022-02-24 Memoria esophagiti e 00:07:16 l s esophagiti Drew n (disorder) s (disorder) Active Problem 02/24/2022 [facility] Anemia Anemia Problem Active 2022-02-24 Chele samara (disorder) (disorder) 00:07:16 l Active [place] Problem 02/24/2022 [facility] ULCER OF ULCER OF Diagnosis Active 2021-06-14 Memoria ESOPHAGUS ESOPHAGUS 12:33:00 l WITHOUT WITHOUT Bryce BLEEDING BLEEDING Active [facility] ESSENTIAL ESSENTIAL Diagnosis Active 2021-06-14 Memoria (PRIMARY) (PRIMARY) 12:33:00 l HYPERTENSI HYPERTENSI He rmann ON ON Active [facility] GASTROINTE GASTROINT Diagnosis Active 2021-01-20 Memoria STINAL ESTINAL 11:32:00 l HEMORRHAGE HEMORRHAGE He rmann , , UNSPECIFIE UNSPECIFIE D D Active [facility] ANEMIA, ANEMIA, Diagnosis Active 2021-01-20 Memoria UNSPECIFIE UNSPECIFIE 11:32:00 l D D Active [place] [facility] PEPTIC PEPTIC Diagnosis Active 2021-01-[address] [facility], SITE UL, SITE 11:32:00 l UNSP, UNSP UNSP, UNSP He rmann AC OR AC OR CHR CHR Active [facility] GASTRO-ESO GASTRO-ES Diagnosis Active 2021-03-31 Memoria PHAGEAL OPHAGEAL 11:45:00 l REFLUX REFLUX [place] DISEASE DISEASE WITHOUT WITHOUT Active [facility] AGE-RELATE AGE-RELAT Diagnosis Active 2020-11-03 Memoria D ED 10:52:00 l OSTEOPOROS OSTEOPOROS He rmann IS W/O IS W/O CURRENT CURRENT PAT PAT Active [facility] ENCNTR ENCNTR Diagnosis Active 2020-11-03 M emoria SCREEN SCREEN 10:52:00 l MAMMOGRAM MAMMOGRAM Herm ankita FOR FOR MALIGNANT MALIGNANT NE NE Active [facility] INCONCLUSI INCONCLUS Diagnosis Active 2020-11-10 Memoria VE JAYLA 11:59:00 l MAMMOGRAM MAMMOGRAM Herm anikta Active [facility] DIAPHRAGMA DIAPHRAGM Diagnosis Active 2021-06-14 Memoria TIC HERNIA ATIC 12:33:00 l WITHOUT HERNIA Bryce OBSTRUCTIO WITHOUT N OBSTRUCTIO N Active [facility] ENCNTR FOR ENCNTR Diagnosis Active 2022-02-16 Memoria GENERAL FOR 15:08:00 l ADULT GENERAL [place] MEDICAL ADULT EXAM W/ MEDICAL EXAM W/ Active [facility] INTERSTITI Diagnosis Active 2021-12-16 Memoria AL INTERSTITI 14:09:00 l PULMONARY AL [place] DISEASE, PULMONARY UNSPECIF DISEASE, UNSPECIF Active [facility] UNSPECIFIE UNSPECIFI Diagnosis Active 2021-12-16 Memoria D ASTHMA, ED ASTHMA, 14:09:00 l UNCOMPLICA UNCOMPLICA He rmann LAWRENCE LAWRENCE Active [facility] UNSPECIFIE UNSPECIFI Diagnosis Active 2017-02-22 Memoria D LUMP IN ED LUMP IN 15:38:00 l BREAST BREAST Bryce Active [facility] OTHER OTHER Diagnosis Active 2017-02-22 Mem oria OSTEOPOROS OSTEOPOROS 15:38:00 l IS WITHOUT IS WITHOUT He rmann CURRENT CURRENT PATHO PATHO Active [facility] OTH ABN OTH ABN Diagnosis Active 2017-04-18 Memoria AND AND 13:58:00 l INCONCLUSI INCONCLUSI He rmann VE VE FINDINGS FINDINGS ON DX ON DX Active [facility] COUGH COUGH Diagnosis Active 2018-04-10 Mem oria Active 10:19:00 l [facility] CHEST CHEST Diagnosis Active 2022-02-21 Me moria PAIN, PAIN, 08:53:00 l UNSPECIFIE UNSPECIFIE He rmann D D Active [facility] SHORTNESS SHORTNESS Diagnosis Active 2022-02-21 Memoria OF BREATH OF BREATH 08:53:00 l Active Drew n [facility] History of Past Illness Condition Condition Condition Status Onset Resolution Last Treating Co mments Source Name Details Category Date Date Treatment Clinician Date Encounter Encounter Problem 2022-02-19 2022-02-19 Memoria for for 02-16 00:43:14 00:43:14 l preprocedu preprocedu 20:28: He rmann ral ral 00 cardiovasc cardiovasc ular ular examinatio examinatio n n 02/16/2022 02/19/2022 [facility] Shortness Shortness Problem 2022-02-19 2022-02-19 Memoria of breath of breath 8-10 00:43:14 00:43:14 l 02/16/2022 20:28: Drew guillaume 02/19/2022 00 [facility] Chest Chest Problem 2022-02-19 2022-02-19 M emoribev pain, pain, 8- 00:43:14 00:43:14 l unspecifie unspecifie 20:28: He rmann d d 00 02/16/2022 02/19/2022 [facility] Gastro-eso Gastro-es Problem 2021-09-06 2021-09-06 Memoria phageal ophageal 09-03 00:08:27 00:08:27 l reflux reflux 18:48: Bryce disease disease 00 without without esophagiti esophagiti s s 09/03/2021 09/06/2021 [facility] Cough Cough Problem 2017-2018-10-28 2018-10-28 M emoria 04/14/2018 0-06 14:11:30 14:11:30 l 10/28/2018 03:52: Drew guillaume [address] Allergies, Adverse Reactions, Alerts This patient has no known allergies or adverse reactions. Social History Social Habit Start Date Stop Date Quantity Comments Source Social History 2021-08-30 2021-08-30 [facility] binu 18:25:55 18:25:55 Sex Assigned At [birth year] [facility] 00:00:00 00:00:00 Smoking Status Start Date Stop Date Source Tobacco smoking consumption unknown [facility] Medications Ordered Filled Start Stop Current Ordering Indication Dosage Frequency Signature Comments Components Source Medication Medication Date Date Medication? Clinician (SIG) Name Name Hydralazine No 10 mg, Chele samara 09-03 Route: l 19:11: IVP, [place] 00 Q20Min, Dosing Weight 65.2, kg, PRN Elevated BP, Start date: 09/03/21 13:11:00 TAB CUTTING MACHINE OPERATOR, Duration: 2 doses or times, Stop date: Limited # of times Labetalol 2021-0 No 10 mg, Memori a 2-25 Route: l 19:11: IVP, Bryce 00 Q5Min, Dosing Weight 65.2, kg, PRN Elevated BP, Start date: 09/03/21 13:11:00 TAB CUTTING MACHINE OPERATOR, Duration: 5 doses or times, Stop date: Limited # of times Fentanyl 2021-0 No 25 Memoria 2-25 microgram, l 19:11: Route: Bryce 00 IVP, Q15Min, Dosing Weight 65.2, kg, PRN Pain Score 4-6, Priority: Routine, Start date: 09/03/21 13:11:00 TAB CUTTING MACHINE OPERATOR, Duration: 4 doses or times, Stop date: Limited # of times Hydromorpho 2021-0 No 0.5 mg, Mem oria ne 2-25 Route: l 19:11: IVP, [place] 00 Q20Min, Dosing Weight 65.2, kg, PRN Pain Score 7-10, Start date: 09/03/21 13:11:00 TAB CUTTING MACHINE OPERATOR, Duration: 4 doses or times, Stop date: Limited # of times Flumazenil 2021-0 No 0.2 mg, Chele samara 09-03 Route: l 19:11: IVP, PRN, [place] 00 Dosing Weight 65.2, kg, PRN Benzodiaze pine Reversal, Initial dose, Start date: 09/03/21 13:11:00 TAB CUTTING MACHINE OPERATOR, Duration: 30 day, Stop date: 10/03/21 14:10:00 CDT Naloxone 2021-0 No 0.4 mg, Memori a 09-03 Route: l 19:11: IVP, [place] 00 Q2MIN, Dosing Weight 65.2, kg, PRN Narcotic Reversal, Start date: 09/03/21 13:11:00 TAB CUTTING MACHINE OPERATOR, Duration: 8 doses or times, Stop date: Limited # of times Albuterol 2021-0 No 2.49 mg, Chele samara 0.83 MG/ML 09-03 Route: l Inhalant 19:11: NEB, Bryce Solution 00 Q20Min, Dosing Weight 65.2, kg, PRN Wheezing, Start date: 09/03/21 13:11:00 TAB CUTTING MACHINE OPERATOR, Duration: 30 day, Stop date: 10/03/21 14:10:00 CDT Ondansetron No 4 mg, Memor ia 09-03 Route: l 19:11: IVP, ONCE, Dosing Weight 65.2, kg, PRN Nausea & Vomiting, Start date: 09/03/21 13:11:00 TAB CUTTING MACHINE OPERATOR Promethazin No 6.25 mg, Me moria e 09-03 Route: l 19:11: IVPB, ONCE, Dosing Weight 65.2, kg, PRN Nausea & Vomiting, Start date: 09/03/21 13:11:00 TAB CUTTING MACHINE OPERATOR Simethicone No 40 mg, Chele samara 09-03 Route: PO, l 19:11: Drug form: Bryce DROP, ONCE, Dosing Weight 65.2, kg, PRN Gas, Start date: 09/03/21 13:11:00 TAB CUTTING MACHINE OPERATOR Benzocaine No 1 lozenge, M emoria 15 MG / 09-03 Route: l Menthol 3.6 19:11: MUCOUS Herm ankita MG Lozenge 00 MEM, Drug [Cepacol Form: SANDRA, Sore Throat Dosing Pain Relief Weight 15/3.6] 65.2, kg, Q2H, PRN Sore Throat, Start date: 09/03/21 13:11:00 TAB CUTTING MACHINE OPERATOR, Duration: 30 day, Stop date: 10/03/21 13:10:00 CDT lidocaine No Route: IV, Me moria (ANES) - Drug form: l 18:49: INJ, ONCE, Stop date: 09/03/21 12:49:00 TAB CUTTING MACHINE OPERATOR propofol No Route: IV, Mem oria (ANES) 2-25 Drug form: l 18:49: INJ, ONCE, Stop date: 09/03/21 12:49:00 TAB CUTTING MACHINE OPERATOR succinylcho No Route: IV, Memoria line (ANES) 2- Drug form: l 18:49: INJ, ONCE, Stop date: 09/03/21 12:49:00 TAB CUTTING MACHINE OPERATOR fentaNYL No Route: IV, Mem oria (ANES) 2-25 Drug form: l 18:49: INJ, ONCE, Stop date: 09/03/21 12:49:00 TAB CUTTING MACHINE OPERATOR ondansetron No Route: IV, Memoria (ANES) - Drug form: l 18:49: INJ, ONCE, Stop date: 09/03/21 12:49:00 TAB CUTTING MACHINE OPERATOR dexamethaso No Route: IV, Memoria ne (ANES) 09-03 Drug form: l 18:49: INJ, ONCE, Stop date: 09/03/21 12:49:00 TAB CUTTING MACHINE OPERATOR ePHEDrine No Route: IV, Me moria (ANES) 09-03 Drug form: l 18:49: INJ, ONCE, Stop date: 09/03/21 12:49:00 TAB CUTTING MACHINE OPERATOR phenylephri No Route: IV, Memoria ne (ANES) 09-03 Drug form: l 18:46: INJ, ONCE, Stop date: 09/03/21 12:46:00 TAB CUTTING MACHINE OPERATOR Isolyte S No Route: IV, Me moria PH 7.4 09-03 Total l (ANES) 1000 17:55: Volume: Her bhagat mL 00 1,000, Start date: 09/03/21 11:55:00 TAB CUTTING MACHINE OPERATOR, Stop date: 09/03/21 12:55:00 TAB CUTTING MACHINE OPERATOR Labetalol 2020-07 No 10 mg, Memori a 2- Route: IV, l 20:47: ONCE, Dosing Weight 66.818, kg, Start date: 06/14/21 14:47:00 TAB CUTTING MACHINE OPERATOR, Stop date: 06/14/21 14:47:00 TAB CUTTING MACHINE OPERATOR Fentanyl 2020-07 No Notes: Memoria 2-06 (Same as: l 20:44: Sublimaze) Preservati ve free. Hydromorpho 2020-07 No Notes: Chele samara ne 2-06 Same as l 20:44: Dilaudid Flumazenil 2020-07 No Notes: Memor ia 2-06 (Same as: l 20:44: Romazicon) Naloxone 2020-07 No Notes: Memoria 2-06 Same as l 20:44: Narcan Meperidine 2020-07 No Notes: Memor ia 2-06 (Same as: l 20:44: Demerol) "Use Precaution in Elderly, Seizure disorders, and Renal impairment " Ondansetron 2020-07 No Notes: Chele samara 08-15 (Same as: l 20:44: Zofran) Bryce 00 MEDICATION WASTE Product Size: 4 mg Product Wasted: ___ mg Acetaminoph 2020-07 No Notes: Max Memoria en 08-15 acetaminop l 20:44: hen 4000 Bryce 00 mg/day (4 gm/day). (Same as: Tylenol Extra Strength) Sucralfate Yes 1 gm = 10 Me moria 100 MG/ML 9-29 ml, PO, l Oral 21:58: QID-Before [place] Suspension 00 Meals, # [Carafate] 400 ml, 0 Refill(s) Fluoxetine Yes 40 mg = 1 Me moria 40 MG Oral 9-22 cap, PO, l Capsule 16:29: Daily, # Drew n [Prozac] 00 30 cap, 0 Refill(s) Amphetamine No 30 mg = 1 M emoria aspartate 9-20 tab, PO, l 7.5 MG / 18:00: BID, 0 [place] Amphetamine 00 Refill(s) Sulfate 7.5 MG / Dextroamphe tamine saccharate 7.5 MG / Dextroamphe tamine Sulfate 7.5 MG Oral Tablet [Adderall] Albuterol Yes 3 mL, NEB, Me moria 0.833 MG/ML 9-20 QID, 0 l / 18:00: Refill(s) Bryce Ipratropium 00 [place] 0.167 MG/ML Inhalant Solution Lorazepam 1 No 1 mg = 1 Me moria MG Oral 9-20 tab, PO, l Tablet 17:59: TID, 0 [place] 00 Refill(s) Sucralfate Yes 1 gm = 1 Mem oria 1000 MG 7-16 tab, PO, l Oral Tablet 00:09: QID-Before [place] [Carafate] 00 Meals, # 120 tab, 0 Refill(s), Pharmacy: [facility] 149, 167.64, cm, 01/19/21 22:09:00 CDT, Height, 71.002, kg, 01/19/21 22:09:00 CDT, Weight pantoprazol Yes 40 mg = 1 M emoria e 40 MG 7-16 tab, PO, l Enteric 00:08: BID, # 42 Katelyn nn Coated 00 tab, 0 Tablet Refill(s), [Protonix] Pharmacy: [facility] 149, 167.64, cm, 01/19/21 22:09:00 CDT, Height, 71.002, kg, 01/19/21 22:09:00 CDT, Weight Calcium No Notes: Memoria Gluconate 7-15 Contains: l 14:00: calcium [place] gluconate 20mg/mL NaCl 0.67% 50mL WASTE: F/P - Sink; E - Municipal Trash Bin 1 ML Yes 60 mg = 1 Memoria denosumab 7-14 mL, SUB-Q, l 60 MG/ML 03:37: ONCE, Bryce Prefilled 00 Repeat Syringe every 6 [Prolia] months, # 1 mL, 0 Refill(s) Amphetamine Yes 30 mg = 1 M emoria aspartate 7-14 tab, PO, l 7.5 MG / 03:36: BID, # 60 Herm ankita Amphetamine 00 tab, 0 Sulfate 7.5 Refill(s) MG / Dextroamphe tamine saccharate 7.5 MG / Dextroamphe tamine Sulfate 7.5 MG Oral Tablet [Adderall] Fluoxetine Yes 40 mg = 1 Me moria 40 MG Oral 7-14 cap, PO, l Capsule 03:36: Daily, # Drew n [Prozac] 00 30 cap, 0 Refill(s) Hydrochloro Yes 25 mg, PO, Memoria thiazide 7-14 Daily, 0 l 03:32: Refill(s) [place] 00 Lorazepam 1 Yes 1 mg = 1 Me moria MG Oral 7-14 tab, PO, l Tablet 03:31: Q8H, PRN [place] [Ativan] 00 Anxiety, # 30 tab, 0 Refill(s) D5NS 1,000 No 1,000 mL, Me moria mL 7-14 Rate: 75 l 02:12: ml/hr, [place] 00 Infuse over: 13.3 hr, Route: IV, Dosing Weight 68.636 kg, Total Volume: 1,000, Start date: 01/19/21 21:12:00 CDT, Duration: 30 day, Stop date: 02/18/21 21:11:00 CDT, BSA: 1.81 m2, 0 Zofran No Notes: Memoria 7-13 (Same as: l 23:06: Zofran) Bryce 00 MEDICATION WASTE Product Size: 4 mg Product Wasted: ___ mg Glucagon No 1 mg, Memoria 7-13 Route: IM, l 21:46: Drug form: Bryce 00 PDR/INJ, PRN, Dosing Weight 68.636, kg, PRN Blood Glucose Results, Start date: 01/19/21 16:46:00 CDT, Duration: 30 day, Stop date: 02/18/21 16:45:00 CDT, 0 Ondansetron No Notes: Chele samara 7-13 (Same as: l 21:46: Zofran) Bryce 00 MEDICATION WASTE Product Size: 4 mg Product Wasted: ___ mg pantoprazol No Notes: For Memoria e additive 7-13 IV push l 80 mg + 21:07: reconstitu Herm ankita Sodium 00 te with 10 Chloride ml 0.9% 0.9% IV 100 sodium mL chloride and push over 2 minutes. (Same as: Protonix) Protonix No Notes: For Mem oria 7-13 IV push l 21:07: reconstitu Bryce 00 te with 10 ml 0.9% sodium chloride and push over 2 minutes. (Same as: Protonix) Sodium No 250 mL, Memoria Chloride 7-13 Rate: To l 0.9% 20:55: prime line Bryce (titrate) 00 and flush 250 mL remaining blood products., Dosing Weight 68.636, kg, Route: IV, Total Volume: 250, Start Date: 01/19/21 15:55:00 CDT, Duration: 1 day, Stop date: 01/20/21 15:54:00 CDT, Replace Every: 24 hr, 0 Saline No Notes: Memoria Flush 0.9% 7-13 (Same as: l 17:38: BD [place] 00 Posiflush) Immunizations Ordered Immunization Filled Immunization Date Status Commen ts Source Name Name Gamaliel 2020-09-02 Completed Chele rial [id number] 00:00:00 [place] [id number] 2020-08-05 Completed Chele rial [id number] 00:00:00 [place] Vital Signs Vital Name Observation Time Observation Value Comments Source Heart Rate 2022-02-16 20:00:00 [facility]ce Systolic (mm Hg) 2022-02-16 20:00:00 Chele rial [place] Diastolic (mm Hg) 2022-02-16 20:00:00 Mem orial [place] Height 2022-02-16 20:00:00 167.64 cm [facility] Bryce Weight 2022-02-16 20:00:00 [facility] [place] BMI Calculated 2022-02-16 20:00:00 Memori al [place] Height 2021-12-10 18:48:00 167.64 cm [facility] [place] Weight 2021-12-10 18:48:00 [facility] [place] BMI Calculated 2021-12-10 18:48:00 Memori al Bryce Heart Rate 2021-10-29 14:02:06 [facility] Bryce Respitory Rate 2021-10-29 14:02:06 Memori al Bryce Systolic (mm Hg) 2021-10-29 14:01:57 Chele rial [place] Diastolic (mm Hg) 2021-10-29 14:01:57 Mem orial [place] Heart Rate 2021-10-29 14:01:57 [facility] Bryce Systolic (mm Hg) 2021-10-29 12:46:31 Chele rial Bryce Diastolic (mm Hg) 2021-10-29 12:46:31 Mem orial [place] Heart Rate 2021-10-29 12:46:31 [facility] Bryce Systolic (mm Hg) 2021-10-29 12:44:47 Chele rial Bryce Diastolic (mm Hg) 2021-10-29 12:44:47 Mem orial [place] Respitory Rate 2021-09-03 19:45:00 Memori al Bryce Systolic (mm Hg) 2021-09-03 19:45:00 Chele rial Bryce Diastolic (mm Hg) 2021-09-03 19:45:00 Mem orial [place] Respitory Rate 2021-09-03 19:30:00 Memori al [place] Systolic (mm Hg) 2021-09-03 19:30:00 Chele rial [place] Diastolic (mm Hg) 2021-09-03 19:30:00 Mem orial [place] Respitory Rate 2021-09-03 19:15:00 Memori al [place] Systolic (mm Hg) 2021-09-03 19:15:00 Chele rial Bryce Diastolic (mm Hg) 2021-09-03 19:15:00 Mem orial Bryce Heart Rate 2021-09-03 18:54:00 [facility] [place] Height 2021-09-03 15:50:00 167.64 cm [facility] [place] Weight 2021-09-03 15:50:00 [facility] Byrce BMI Calculated 2021-09-03 15:50:00 Memori al [place] Heart Rate 2021-09-03 15:50:00 [facility] [place] Height 2021-08-30 18:35:00 167.64 cm [facility] Bryce Weight 2021-08-30 18:35:00 [facility] Bryce BMI Calculated 2021-08-30 18:35:00 Memori al Bryce Respitory Rate 2021-06-14 20:55:00 Memori al Bryce Systolic (mm Hg) 2021-06-14 20:55:00 Chele rial Bryce Diastolic (mm Hg) 2021-06-14 20:55:00 Mem orial Bryce Respitory Rate 2021-06-14 20:40:00 Memori al Bryce Systolic (mm Hg) 2021-06-14 20:40:00 Chele rial Bryce Diastolic (mm Hg) 2021-06-14 20:40:00 Mem orial [place] Respitory Rate 2021-06-14 20:25:00 Memori al Bryce Systolic (mm Hg) 2021-06-14 20:25:00 Chele rial [place] Diastolic (mm Hg) 2021-06-14 20:25:00 Mem orial Bryce Heart Rate 2021-06-11 17:00:00 [facility] [place] Respitory Rate 2021-06-11 17:00:00 Memori al Bryce Systolic (mm Hg) 2021-06-11 17:00:00 Chele rial [place] Diastolic (mm Hg) 2021-06-11 17:00:00 Mem orial [place] Height 2021-06-11 16:40:00 166.37 cm [facility] [place] Weight 2021-06-11 16:40:00 [facility] [place] BMI Calculated 2021-06-11 16:40:00 Memori al Bryce Respitory Rate 2021-04-12 21:00:00 Memori al Bryce Systolic (mm Hg) 2021-04-12 21:00:00 Chele rial [place] Diastolic (mm Hg) 2021-04-12 21:00:00 Mem orial [place] Respitory Rate 2021-04-12 20:40:00 Memori al Bryce Systolic (mm Hg) 2021-04-12 20:40:00 Chele rial [place] Diastolic (mm Hg) 2021-04-12 20:40:00 [facility] Respitory Rate 2021-04-12 19:35:00 [facility] Systolic (mm Hg) 2021-04-12 19:35:00 [facility] Diastolic (mm Hg) 2021-04-12 19:35:00 [facility] Heart Rate 2021-04-09 18:30:00 [facility] Respitory Rate 2021-04-09 18:30:00 [facility] Systolic (mm Hg) 2021-04-09 18:30:00 [facility] Diastolic (mm Hg) 2021-04-09 18:30:00 [facility] Height 2021-04-09 18:29:00 167.64 cm [facility] Weight 2021-04-09 18:29:00 [facility] BMI Calculated 2021-04-09 18:29:00 Memori al [facility] Respitory Rate 2021-03-31 19:55:00 Memori al [place] Respitory Rate 2021-03-31 19:45:00 Memori al [place] Systolic (mm Hg) 2021-03-31 19:45:00 Chele rial [place] Diastolic (mm Hg) 2021-03-31 19:45:00 Mem orial [place] Respitory Rate 2021-03-31 19:30:00 Mem[facility] [place] Systolic (mm Hg) 2021-03-31 19:30:00 Chele rial Bryec Diastolic (mm Hg) 2021-03-31 19:30:00 Mem orial Bryce Systolic (mm Hg) 2021-03-31 19:15:00 Chele rial Bryce Diastolic (mm Hg) 2021-03-31 19:15:00 Mem orial [place] Heart Rate 2021-03-29 16:26:19 [facility] Heart Rate 2021-03-29 16:24:51 [facility] Height 2021-03-29 16:21:00 166.37 cm [facility] Weight 2021-03-29 16:21:00 [facility] BMI Calculated 2021-03-29 16:21:00 [facility] Temperature Oral (F) 2021-03-29 16:00:00 98 F [facility] Heart Rate 2021-01-21 20:10:23 [facility] Respitory Rate 2021-01-21 20:10:23 [facility] [place] Systolic (mm Hg) 2021-01-21 20:09:55 Chele rial Bryce Diastolic (mm Hg) 2021-01-21 20:09:55 Mem orial [place] Heart Rate 2021-01-21 20:09:55 [facility] Temperature Oral (F) 2021-01-21 20:09:39 99 F [facility] Heart Rate 2021-01-21 16:03:34 [facility] Respitory Rate 2021-01-21 16:03:34 Memori al [place] Systolic (mm Hg) 2021-01-21 16:03:03 Chele rial Bryce Diastolic (mm Hg) 2021-01-21 16:03:03 Mem orial [place] Temperature Oral (F) 2021-01-21 16:02:47 98.5 F [facility] Temperature Oral (F) 2021-01-21 13:04:00 98.4 F [facility] Respitory Rate 2021-01-21 13:04:00 Memori al [place] Systolic (mm Hg) 2021-01-21 13:04:00 Chele rial Bryce Diastolic (mm Hg) 2021-01-21 13:04:00 Mem orial Bryce Height 2021-01-20 03:09:00 167.64 cm [facility] Weight 2021-01-20 03:09:00 [facility] BMI Calculated 2021-01-20 03:09:00 [facility] Height 2021-01-19 17:36:00 170.18 cm [facility] BMI Calculated 2021-01-19 17:36:00 [facility] Weight 2021-01-19 17:36:00 [facility] Procedures Procedure Date / Time Performing Source Performed Clinician ECHO COMPLETE -CLINIC 2022-02-24 Abdon Green [facility] 14:26:23 K [facility] Start End Encounter Admission Attending Care Care Encounter Source Date/Time Date/Time Type Type Clinicians Facility Department ID 2022-04-18 Outpatient GREEN, [facility] CAR 7519 [facility] 12:03:08 ABDON 2022-01-28 Outpatient CREWS, [facility] [id number] [place] 01:05:27 MARTINEZ [id number] [facility] 2021-12-03 Outpatient RAMIREDDY, [facility] [id number] [place] 01:03:38 ANA [id number] [facility] 2021-10-20 Outpatient [facility] [id number] [place] 08:43:20 [id number] [facility] 2021-07-16 Outpatient RAMIREDDY, [facility] [address] [facility] [place] 11:28:18 ANA 2022-02-21 2022-02-22 Outpatient nullFlavo [facility] 3622 [id number] Memoria 13:44:00 04:59:00 r [place]ce 18 l [facility] [place] 2022-02-21 2022-02-21 Outpatient Green, [facility] [id number] 08:44:00 23:59:00 Abdon 18 Nunohiram 2022-02-21 2022-02-21 [id number] [facility] 08:44:00 23:59:00 ABDON 2022-02-16 2022-02-17 Outpatient nullFlavo [id number] Memoria 19:29:00 04:59:00 r Community 17 l Cardiology [facility] 2022-02-16 2022-02-16 Outpatient GREEN, [facility] [place] CAR [address] [facility] [place] 14:29:00 23:59:00 ABDON 2022-02-16 2022-02-16 Outpatient Green, [facility] [id number] 14:29:00 23:59:00 Abdon Brendon Reinanmcynthia 2022-02-16 2022-02-16 Office GREEN, EXT MSRDP [id number] [place] 14:30:00 14:30:00 Visit [facility] [id number] [facility] [id number] 2021-12-10 2021-12-11 Outpatient nullFlavo [facility] 3622 [id number] Memoria 17:55:00 04:59:00 r Bryce 16 l [facility] 2021-12-10 2021-12-10 [facility] [id number] 12:55:00 23:59:00 Harmohinder 16 S 2021-12-10 2021-12-10 Outpatient Talib, [facility] [id number] 12:55:00 23:59:00 Harmohinder 16 S 2021-12-10 2021-12-10 Outpatient TALIB, [facility] PUL 7516 [facility] 12:55:00 23:59:00 HARMSDINDER 2021-10-29 2021-10-29 [facility] [id number] Memoria 12:28:00 12:28:00 Outpatient r Bryce [address] [facility] 2021-10-29 2021-10-29 Outpatient CREWS, [facility] [address] [facility] [place] 07:28:00 09:02:00 MARTINEZ 2021-10-29 2021-10-29 Outpatient Crews, [facility] [id number] 07:28:00 07:28:00 Martinez Raul Santos 2021-10-26 2021-10-27 Outpatient nullFlavo [place] [id number] Memoria 15:00:00 04:59:59 r Care Clear 01 l [facility] 2021-10-26 2021-10-26 Outpatient MHMG MHMG [id number] 10:00:00 23:59:59 2021-10-26 2021-10-26 Outpatient MHIE MHIE [id number] Memoria 10:00:00 10:00:00 01 [facility] 2021-09-03 2021-09-04 Day nullFlavo [facility] [id number] Memoria 14:07:00 05:59:00 Surgery [facility] 56 [facility] 2021-09-03 2021-09-03 Outpatient RAMIREDDY, [facility] [address] [facility] [place] 08:07:00 23:59:00 ANA 2021-09-03 2021-09-03 Outpatient Ramireddy, [facility] [id number] 08:07:00 23:59:00 Ana 56 2021-09-03 2021-09-03 Day nullFlavo [facility] [id number] Memoria 16:00:00 16:00:00 Surgery [facility] 14 [facility] 2021-09-03 2021-09-03 Outpatient Ramireddy, [facility] [id number] 10:00:00 10:00:00 Ana 14 2021-09-03 2021-09-03 Outpatient Ramireddy, [facility] [id number] 10:00:00 10:00:00 Ana 14 2021-08-30 2021-08-31 Outpatient nullFlavo [facility] [id number] Memoria 19:10:00 05:59:59 r Care Clear 00 [facility] 2021-08-30 2021-08-30 Outpatient MHMG MHMG [id number] 13:10:00 23:59:59 00 2021-08-30 2021-08-30 Outpatient MHIE MHIE [id number] Memoria 13:10:00 13:10:00 00 [facility] 2021-07-20 2021-07-21 Outpatient nullFlavo [facility] [id number] Memoria 19:49:00 05:59:00 r Disease 13 [facility] 2021-07-20 2021-07-20 Outpatient RAMIREDDY, [facility] [address] [facility] 13:49:00 23:59:00 ANA 2021-07-20 2021-07-20 Outpatient Linda [facility] [id number] 13:49:00 23:59:00 Ana 13 2021-06-14 2021-06-14 Day nullFlavo [facility] [id number] Memoria 18:08:00 22:28:00 Surgery r [place] 12 l [facility] 2021-06-14 2021-06-14 Outpatient Atiya, [facility] [id number] 12:08:00 16:28:00 Laina 12 Sarah 2021-06-14 2021-06-14 Outpatient ATIYA, NW NW 7512 NW 12:08:00 16:28:00 LAINA 2021-06-14 2021-06-14 Outpatient Atiya, [facility] [id number] 13:00:00 13:00:00 Laina 12 Sarah 2021-04-12 2021-04-12 Day nullFlavo [facility] [id number] Memoria 19:00:00 21:09:00 Surgery r [place] 11 l [facility] 2021-04-12 2021-04-12 Outpatient Atiya, [facility] [id number] 14:00:00 16:09:00 Laina 11 Sarah 2021-04-12 2021-04-12 Outpatient ATIYA, NW NW 7511 NW 14:00:00 16:09:00 LAINA 2021-04-12 2021-04-12 Outpatient Atiya, [facility] [id number] 14:00:00 14:00:00 Laina 11 Sarah 2021-03-31 2021-03-31 Day nullFlavo [facility] [id number] Memoria 16:20:00 20:03:00 Surgery r [place] 10 l [facility] 2021-03-31 2021-03-31 Outpatient Atiya, [facility] [id number] 11:20:00 15:03:00 Laina 10 Sarah 2021-03-31 2021-03-31 Outpatient Atiya, [facility] [id number] 11:20:00 15:03:00 Laina Rosie BoyceSarah 2021-03-31 2021-03-31 Outpatient ATIYA [facility] NW 7510 [facility] 11:20:00 15:03:00 LAINA 2021-01-19 2021-01-22 Inpatient nullFlavo [facility] [id number] Memoria 17:19:00 01:04:00 r Bryce 09 l [facility] 2021-01-19 2021-01-21 Inpatient E MICHAEL, [facility] PUL [id number] [facility] 16:18:00 20:04:00 [facility] 2021-01-19 2021-01-21 Outpatient Michael, [facility] [id number] 12:19:00 20:04:00 [facility] B K 2021-01-19 2021-01-21 Outpatient Rodriguez, [facility] [id number] 12:19:00 20:04:00 [facility] 09 B K 2020-11-10 2020-11-11 Outpatient nullFlavo [facility] [id number] Memoria 16:52:00 04:59:00 r Bryce 08 l [facility] 2020-11-10 2020-11-10 Outpatient De Leon, [facility] [id number] 11:52:00 23:59:00 Dolores Reyes [facility] 2020-11-10 2020-11-10 Outpatient HALEY, NW MED 7508 [facility] 11:52:00 23:59:00 DOLORES 2020-11-03 2020-11-04 Outpatient nullFlavo [facility] 3622 [id number] Memoria 15:26:00 04:59:00 r Bryce 07 l [facility] 2020-11-03 2020-11-03 Outpatient HALEY, [facility] MED [id number] [facility] 10:26:00 23:59:00 DOLORES 2020-11-03 2020-11-03 Outpatient De Leon, [facility] [id number] 10:26:00 23:59:00 Dolores Heath [facility] 2018-04-10 2018-04-11 Outpatient nullFlavo [facility] [id number] Memoria 15:09:00 04:59:00 r Hudson 06 l [facility] 2018-04-10 2018-04-10 [facility] [id number] 10:09:00 23:59:00 Dolores 06 Menendez-Pelon 2017-04-18 2017-04-19 [facility] [id number] Memoria 18:58:00 04:59:00 r Bryce 05 l [facility] 2017-04-18 2017-04-18 [facility] [id number] 13:58:00 23:59:00 Dolores 05 RebelPelon 2017-02-22 2017-02-23 [place] [id number] Memoria 15:11:00 04:59:00 r Bryce 04 l [facility] 2017-02-22 2017-02-22 [facility] [id number] 10:11:00 23:59:00 Dolores Wilson [facility] Results Test Description Test Time Test Comments Results Result Comments Source [facility] 2021-12-08 16:13:00 Test Item Value Reference Range Interpretation Comme nts Coronavirus (COVID-19) YARELY (test code = Not Detected *NA*(12/08/21 11 :13 AM) Coronavirus (COVID-19) YARELY) [id number] 15:10:00 Test Item Value Reference Range Interpretation Comments Coronavirus (COVID-19) Not Detected YARELY (test code = *NA*(10/26/21 10:10 Coronavirus (COVID-19) AM) YARELY) [facility] SARL [id number] 16:06:00 Test Item Value Reference Range Interpretation Comments Glucose Lvl (test code = Glucose Lvl) 104 70-99 [facility] SARL [id number] 16:06:00 Test Item Value Reference Range Interpretation Comments BUN (test code = BUN) 17 01-28 [facility]2022-02-25 16:06:00 Test Item Value Reference Range Interpretation Comments Creatinine Lvl (test code = Creatinine 1.12 0.50-1.40 Lvl) [facility] SARL [id number] 16:06:00 Test Item Value Reference Range Interpretation Comments Sodium Lvl (test code = Sodium Lvl) 137 135-145 [place] 577072-02-25 16:06:00 Test Item Value Reference Range Interpretation Comments Potassium Lvl (test code = Potassium 3.3 3.5-5.1 Lvl) [place] 577072-02-25 16:06:00 Test Item Value Reference Range Interpretation Comments Chloride Lvl (test code = Chloride Lvl) 106 95-109 [place] 577072-02-25 16:06:00 Test Item Value Reference Range Interpretation Comments CO2 (test code = CO2) 26 24-32 [place] 577072-02-25 16:06:00 Test Item Value Reference Range Interpretation Comments Calcium Lvl (test code = Calcium Lvl) 9.0 8.5-10.5 [place] 577072-02-25 16:06:00 Test Item Value Reference Range Interpretation Comments AGAP (test code = AGAP) 8.3 10.0-20.0 [place] 577072-02-25 16:06:00 Test Item Value Reference Range Interpretation Comments eGFR (test code = eGFR) 51 [place] 982892-02-25 16:06:00 Test Item Value Reference Range Interpretation Comments WBC (test code = WBC) 5.9 3.7-10.4 [place] 982892-02-25 16:06:00 Test Item Value Reference Range Interpretation Comments RBC (test code = RBC) 4.15 4.20-5.40 [place] 982892-02-25 16:06:00 Test Item Value Reference Range Interpretation Comments Hgb (test code = Hgb) 9.9 12.0-16.0 [place] [address]-02-25 16:06:00 Test Item Value Reference Range Interpretation Comments Hct (test code = Hct) 31.2 36.0-48.0 [place] [address]-02-25 16:06:00 Test Item Value Reference Range Interpretation Comments MCV (test code = MCV) 75.2 80.0-98.0 [place] [address]-02-25 16:06:00 Test Item Value Reference Range Interpretation Comments MCH (test code = MCH) 23.8 pg 27.0-31.0 [place] 982892-02-25 16:06:00 Test Item Value Reference Range Interpretation Comments MCHC (test code = MCHC) 31.7 32.0-36.0 [place] 982892-02-25 16:06:00 Test Item Value Reference Range Interpretation Comments RDW (test code = RDW) 17.7 11.5-14.5 [place] 982892-02-25 16:06:00 Test Item Value Reference Range Interpretation Comments Platelet (test code = Platelet) 391 133-450 [place] 982892-02-25 16:06:00 Test Item Value Reference Range Interpretation Comments MPV (test code = MPV) 7.1 7.4-10.4 [place] 982892-02-25 16:06:00 Test Item Value Reference Range Interpretation Comments Segs (test code = Segs) 73.5 45.0-75.0 [place] 982892-02-25 16:06:00 Test Item Value Reference Range Interpretation Comments Lymphocytes (test code = Lymphocytes) 19.4 20.0-40.0 [place] 982892-02-25 16:06:00 Test Item Value Reference Range Interpretation Comments Monocytes (test code = Monocytes) 5.4 2.0-12.0 [place] 982892-02-25 16:06:00 Test Item Value Reference Range Interpretation Comments Eosinophils (test code = 1.1 See_Comment [A utomated message] The Eosinophils) system which ge nerated this result tra nsmitted reference range : <=4.0. The reference r jonas was not used to int erpret this result as normal/abnormal . [place] 982892-02-25 16:06:00 Test Item Value Reference Range Interpretation Comments Basophils (test code = 0.6 See_Comment [Aut omated message] The Basophils) system which ge nerated this result tra nsmitted reference range : <=1.0. The reference r jonas was not used to int erpret this result as normal/abnormal . [place] 982892-02-25 16:06:00 Test Item Value Reference Range Interpretation Comments Neutrophils # (test code = Neutrophils 4.4 1.5-8.1 #) [place] 982892-02-25 16:06:00 Test Item Value Reference Range Interpretation Comments Lymphocytes # (test code = Lymphocytes 1.2 1.0-5.5 #) [id number] 16:06:00 Test Item Value Reference Range Interpretation Comments Monocytes # (test code 0.3 See_Comment [Aut omated message] The = Monocytes #) system which generated this result tra nsmitted reference range : <=0.8. The reference r jonas was not used to int erpret this result as normal/abnormal . [id number] 16:06:00 Test Item Value Reference Range Interpretation Comments Eosinophils # (test code 0.1 See_Comment [A utomated message] The = Eosinophils #) system whic h generated this result tra nsmitted reference range : <=0.5. The reference r jonas was not used to int erpret this result as normal/abnormal . [facility]entonClehgkbPDWUDTVCVQ0167-56-83 16:06:00 Test Item Value Reference Range Interpretation Comments Microcyte (test code = 1+ *ABN*(09/03/21 Microcyte) 10:06 AM) [facility]GzwpxmkMKVIVGSWCB9739-53-55 19:02:00 Test Item Value Reference Range Interpretation Comments Coronavirus (COVID-19) Not Detected YARELY (test code = *NA*(08/30/21 1:02 PM) Coronavirus (COVID-19) YARELY) [facility]2021-12-03 16:40:00 Test Item Value Reference Range Interpretation Comments Glucose Lvl (test code = Glucose Lvl) 95 70-99 [facility]2021-12-03 16:40:00 Test Item Value Reference Range Interpretation Comments BUN (test code = BUN) 17 7-22 [place] 577071-12-03 16:40:00 Test Item Value Reference Range Interpretation Comments Creatinine Lvl (test code = Creatinine 1.09 0.50-1.40 Lvl) [facility]2021-12-03 16:40:00 Test Item Value Reference Range Interpretation Comments Sodium Lvl (test code = Sodium Lvl) 138 135-145 [facility]2021-12-03 16:40:00 Test Item Value Reference Range Interpretation Comments Potassium Lvl (test code = Potassium 3.7 3.5-5.1 Lvl) [facility] kineticJENNIFER [place] [id number] 16:40:00 Test Item Value Reference Range Interpretation Comments Chloride Lvl (test code = Chloride Lvl) 106 95-109 [place] [address]-12-03 16:40:00 Test Item Value Reference Range Interpretation Comments CO2 (test code = CO2) 27 24-32 [place] [address]-12-03 16:40:00 Test Item Value Reference Range Interpretation Comments Calcium Lvl (test code = Calcium Lvl) 9.0 8.5-10.5 [facility] kineticJ[place] [id number] 16:40:00 Test Item Value Reference Range Interpretation Comments Total Protein (test code = Total 7.7 6.4-8.4 Protein) [address]12-03 16:40:00 Test Item Value Reference Range Interpretation Comments Albumin Lvl (test code = Albumin Lvl) 3.7 3.5-5.0 [facility] SARL [id number] 16:40:00 Test Item Value Reference Range Interpretation Comments ALT (test code = ALT) 20 See_Comment [Auto mated message] The system which ge nerated this result transmit lawrence reference range : <=65. The reference range was not used to interpr et this result as ryan l/abnormal. [facility] SARL [id number] 16:40:00 Test Item Value Reference Range Interpretation Comments AST (test code = AST) 16 See_Comment [Auto mated message] The system which ge nerated this result transmit lawrence reference range : <=37. The reference range was not used to interpr et this result as ryan l/abnormal. [facility] [id number] 16:40:00 Test Item Value Reference Range Interpretation Comments Alk Phos (test code = Alk Phos) 102 39-136 [facility] [id number] 16:40:00 Test Item Value Reference Range Interpretation Comments Bili Total (test code = Bili Total) 0.3 0.2-1.[address]12-03 16:40:00 Test Item Value Reference Range Interpretation Comments AGAP (test code = AGAP) 8.7 10.0-20.0 [facility] [id number] 16:40:00 Test Item Value Reference Range Interpretation Comments B/C Ratio (test code = B/C Ratio) 16 1 6-25 [facility]2021-12-03 16:40:00 Test Item Value Reference Range Interpretation Comments Globulin (test code = Globulin) 4.0 2.7-4.2 [place] 577071-12-03 16:40:00 Test Item Value Reference Range Interpretation Comments A/G Ratio (test code = A/G Ratio) 0.9 1 0.7-1.6 [place] 577071-12-03 16:40:00 Test Item Value Reference Range Interpretation Comments eGFR (test code = eGFR) 53 [facility]HrsgcvxPSLHBTPNWU4560-13-21 16:40:00 Test Item Value Reference Range Interpretation Comments WBC (test code = WBC) 4.9 3.7-10.4 [place] 982891-12-03 16:40:00 Test Item Value Reference Range Interpretation Comments RBC (test code = RBC) 4.46 4.20-5.40 [facility]CxrzfazIRAFTXUAXL2945-16-17 16:40:00 Test Item Value Reference Range Interpretation Comments Hgb (test code = Hgb) 10.1 12.0-16.0 [id number] 16:40:00 Test Item Value Reference Range Interpretation Comments Hct (test code = Hct) 31.9 36.0-48.0 [place] 982891-12-03 16:40:00 Test Item Value Reference Range Interpretation Comments MCV (test code = MCV) 71.4 80.0-98.0 [place] 982891-12-03 16:40:00 Test Item Value Reference Range Interpretation Comments MCH (test code = MCH) 22.5 pg 27.0-31.0 [place] 982891-12-03 16:40:00 Test Item Value Reference Range Interpretation Comments MCHC (test code = MCHC) 31.6 32.0-36.0 [facility]entonXlekovuKZOCUPMFPQ5389-22-14 16:40:00 Test Item Value Reference Range Interpretation Comments RDW (test code = RDW) 21.2 11.5-14.5 [facility]entonBfzjphqTREVYAHBDS6536-60-54 16:40:00 Test Item Value Reference Range Interpretation Comments Platelet (test code = Platelet) 414 133-450 [place] 982891-12-03 16:40:00 Test Item Value Reference Range Interpretation Comments MPV (test code = MPV) 7.0 7.4-10.4 [place] [address]-12-03 16:40:00 Test Item Value Reference Range Interpretation Comments PT (test code = PT) 12.2 s 12.0-14.7 [place] [address]-12-03 16:40:00 Test Item Value Reference Range Interpretation Comments INR (test code = INR) 0.91 1 0.85-1.17 [place] [address]-12-03 16:40:00 Test Item Value Reference Range Interpretation Comments PTT (test code = PTT) 28.5 s 22.9-35.8 [place] [address]-12-03 16:40:00 Test Item Value Reference Range Interpretation Comments Segs (test code = Segs) 67.6 45.0-75.[address]12-03 16:40:00 Test Item Value Reference Range Interpretation Comments Lymphocytes (test code = Lymphocytes) 24.1 20.0-40.0 [place] [address]-12-03 16:40:00 Test Item Value Reference Range Interpretation Comments Monocytes (test code = Monocytes) 5.9 2.0-12.0 [place] [address]-12-03 16:40:00 Test Item Value Reference Range Interpretation Comments Eosinophils (test code = 1.6 See_Comment [A utomated message] The Eosinophils) system which ge nerated this result tra nsmitted reference range : <=4.0. The reference r jonas was not used to int erpret this result as normal/abnormal . [place] 982891-12-03 16:40:00 Test Item Value Reference Range Interpretation Comments Basophils (test code = 0.8 See_Comment [Aut omated message] The Basophils) system which ge nerated this result tra nsmitted reference range : <=1.0. The reference r jonas was not used to int erpret this result as normal/abnormal . [place] [address]-12-03 16:40:00 Test Item Value Reference Range Interpretation Comments Neutrophils # (test code = Neutrophils 3.3 1.5-8.1 #) [place] 982891-12-03 16:40:00 Test Item Value Reference Range Interpretation Comments Lymphocytes # (test code = Lymphocytes 1.2 1.0-5.5 #) [id number] 16:40:00 Test Item Value Reference Range Interpretation Comments Monocytes # (test code 0.3 See_Comment [Aut omated message] The = Monocytes #) system which generated this result tra nsmitted reference range : <=0.8. The reference r jonas was not used to int erpret this result as normal/abnormal . [place] 982891-12-03 16:40:00 Test Item Value Reference Range Interpretation Comments Eosinophils # (test code 0.1 See_Comment [A utomated message] The = Eosinophils #) system whic h generated this result tra nsmitted reference range : <=0.5. The reference r jonas was not used to int erpret this result as normal/abnormal . [id number] 16:40:00 Test Item Value Reference Range Interpretation Comments Microcyte (test code = 1+ *ABN*(06/11/21 Microcyte) 10:40 AM) [place] [address]-12-03 16:40:00 Test Item Value Reference Range Interpretation Comments Coronavirus (COVID-19) Not Detected YARELY (test code = *NA*(06/11/21 10:40 Coronavirus (COVID-19) AM) YARELY) [place] [address]-10-01 18:33:00 Test Item Value Reference Range Interpretation Comments Coronavirus (COVID-19) Not Detected YARELY (test code = *NA*(04/09/21 1:33 PM) Coronavirus (COVID-19) YARELY) [facility]2021-09-20 16:29:00 Test Item Value Reference Range Interpretation Comments Glucose Lvl (test code = Glucose Lvl) 92 70-99 [facility]2021-09-20 16:29:00 Test Item Value Reference Range Interpretation Comments BUN (test code = BUN) 17 7-22 [facility]2021-09-20 16:29:00 Test Item Value Reference Range Interpretation Comments Creatinine Lvl (test code = Creatinine 1.06 0.50-1.40 Lvl) [facility]2021-09-20 16:29:00 Test Item Value Reference Range Interpretation Comments Sodium Lvl (test code = Sodium Lvl) 138 135-145 [place] 577071-09-20 16:29:00 Test Item Value Reference Range Interpretation Comments Potassium Lvl (test code = Potassium 4.8 3.5-5.1 Lvl) [place] 577071-09-20 16:29:00 Test Item Value Reference Range Interpretation Comments Chloride Lvl (test code = Chloride Lvl) 106 95-109 [place] 577071-09-20 16:29:00 Test Item Value Reference Range Interpretation Comments CO2 (test code = CO2) 27 24-32 [place] 577071-09-20 16:29:00 Test Item Value Reference Range Interpretation Comments Calcium Lvl (test code = Calcium Lvl) 8.6 8.5-10.5 [place] 577071-09-20 16:29:00 Test Item Value Reference Range Interpretation Comments Total Protein (test code = Total 7.8 6.4-8.4 Protein) [facility]2021-09-20 16:29:00 Test Item Value Reference Range Interpretation Comments Albumin Lvl (test code = Albumin Lvl) 3.7 3.5[facility]5.0 [id number] 16:29:00 Test Item Value Reference Range Interpretation Comments ALT (test code = ALT) 15 See_Comment [Auto mated message] The system which ge nerated this result transmit lawrence reference range : <=65. The reference range was not used to interpr et this result as ryan l/abnormal. [facility]L [id number] 16:29:00 Test Item Value Reference Range Interpretation Comments AST (test code = AST) 14 See_Comment [Auto mated message] The system which ge nerated this result transmit lawrence reference range : <=37. The reference range was not used to interpr et this result as ryan l/abnormal. [facility]L [id number] 16:29:00 Test Item Value Reference Range Interpretation Comments Alk Phos (test code = Alk Phos) 94 39-136 [facility]L [id number] 16:29:00 Test Item Value Reference Range Interpretation Comments Bili Total (test code = Bili Total) 0.2 0.2-1.3 [facility]2021-09-20 16:29:00 Test Item Value Reference Range Interpretation Comments AGAP (test code = AGAP) 9.8 10.0-20.0 [place] 577071-09-20 16:29:00 Test Item Value Reference Range Interpretation Comments B/C Ratio (test code = B/C Ratio) 16 1 6-25 [place] 577071-09-20 16:29:00 Test Item Value Reference Range Interpretation Comments Globulin (test code = Globulin) 4.1 2.7-4.2 [place] 577071-09-20 16:29:00 Test Item Value Reference Range Interpretation Comments A/G Ratio (test code = A/G Ratio) 0.9 1 0.7-1.6 [place] 577071-09-20 16:29:00 Test Item Value Reference Range Interpretation Comments eGFR (test code = eGFR) 55 [facility]IULTYEYKPC7706[facility]-07 16:29:00 Test Item Value Reference Range Interpretation Comments WBC (test code = WBC) 5.5 3.7-10.4 [place] 982891-09-20 16:29:00 Test Item Value Reference Range Interpretation Comments RBC (test code = RBC) 4.33 4.20-5.40 [place] 982891-09-20 16:29:00 Test Item Value Reference Range Interpretation Comments Hgb (test code = Hgb) 9.8 12.0-16.0 [place] 982891-09-20 16:29:00 Test Item Value Reference Range Interpretation Comments Hct (test code = Hct) 31.6 36.0-48.0 [place] 982891-09-20 16:29:00 Test Item Value Reference Range Interpretation Comments MCV (test code = MCV) 73.0 80.0-98.0 [place] 982891-09-20 16:29:00 Test Item Value Reference Range Interpretation Comments MCH (test code = MCH) 22.6 pg 27.0-31.0 [place] 982891-09-20 16:29:00 Test Item Value Reference Range Interpretation Comments MCHC (test code = MCHC) 31.0 32.0-36.0 [place] 982891-09-20 16:29:00 Test Item Value Reference Range Interpretation Comments RDW (test code = RDW) 18.2 11.5-14.5 [place] 982891-09-20 16:29:00 Test Item Value Reference Range Interpretation Comments Platelet (test code = Platelet) 588 133-450 [id number] 16:29:00 Test Item Value Reference Range Interpretation Comments MPV (test code = MPV) 7.0 7.4-10.4 [place] 982891-09-20 16:29:00 Test Item Value Reference Range Interpretation Comments PT (test code = PT) 13.3 s 12.0-14.7 [place] 982891-09-20 16:29:00 Test Item Value Reference Range Interpretation Comments INR (test code = INR) 1.02 1 0.85-1.17 [place] 982891-09-20 16:29:00 Test Item Value Reference Range Interpretation Comments PTT (test code = PTT) 29.7 s 22.9-35.8 [place] 982891-09-20 16:29:00 Test Item Value Reference Range Interpretation Comments Segs (test code = Segs) 64.2 45.0-75.0 [id number] 16:29:00 Test Item Value Reference Range Interpretation Comments Lymphocytes (test code = Lymphocytes) 27.8 20.0-40.0 [facility]entonFtcklkbFTMXDVKGQW9483-65-11 16:29:00 Test Item Value Reference Range Interpretation Comments Monocytes (test code = Monocytes) 6.0 2.0-12.0 [place] 982891-09-20 16:29:00 Test Item Value Reference Range Interpretation Comments Eosinophils (test code = 1.2 See_Comment [A utomated message] The Eosinophils) system which ge nerated this result tra nsmitted reference range : <=4.0. The reference r jonas was not used to int erpret this result as normal/abnormal . [place] 982891-09-20 16:29:00 Test Item Value Reference Range Interpretation Comments Basophils (test code = 0.8 See_Comment [Aut omated message] The Basophils) system which ge nerated this result tra nsmitted reference range : <=1.0. The reference r jonas was not used to int erpret this result as normal/abnormal . [id number] 16:29:00 Test Item Value Reference Range Interpretation Comments Neutrophils # (test code = Neutrophils 3.5 1.5-8.1 #) [id number] 16:29:00 Test Item Value Reference Range Interpretation Comments Lymphocytes # (test code = Lymphocytes 1.5 1.0-5.5 #) [id number] 16:29:00 Test Item Value Reference Range Interpretation Comments Monocytes # (test code 0.3 See_Comment [Aut omated message] The = Monocytes #) system which generated this result tra nsmitted reference range : <=0.8. The reference r jonas was not used to int erpret this result as normal/abnormal . [facility]entonUmmrqiiAQJTTPJJHD9084-45-40 16:29:00 Test Item Value Reference Range Interpretation Comments Eosinophils # (test code 0.1 See_Comment [A utomated message] The = Eosinophils #) system whic h generated this result tra nsmitted reference range : <=0.5. The reference r jonas was not used to int erpret this result as normal/abnormal . [facility]ent[id number] 16:29:00 Test Item Value Reference Range Interpretation Comments Microcyte (test code = 1+ *ABN*(03/29/21 Microcyte) 11:29 AM) [facility]B[id number] 16:29:00 Test Item Value Reference Range Interpretation Comments Coronavirus (COVID-19) Not Detected YARELY (test code = *NA*(03/29/21 11:29 Coronavirus (COVID-19) AM) YARELY) [facility]2021-07-15 10:13:00 Test Item Value Reference Range Interpretation Comments Glucose Lvl (test code = Glucose Lvl) 79 70-99 [facility]2021-07-15 10:13:00 Test Item Value Reference Range Interpretation Comments BUN (test code = BUN) 9 7-22 [facility]2021-07-15 10:13:00 Test Item Value Reference Range Interpretation Comments Creatinine Lvl (test code = Creatinine 0.78 0.50-1.40 Lvl) [facility]2021-07-15 10:13:00 Test Item Value Reference Range Interpretation Comments Sodium Lvl (test code = Sodium Lvl) 143 135-145 [place] 577071-07-15 10:13:00 Test Item Value Reference Range Interpretation Comments Potassium Lvl (test code = Potassium 3.3 3.5-5.1 Lvl) [place] 577071-07-15 10:13:00 Test Item Value Reference Range Interpretation Comments Chloride Lvl (test code = Chloride Lvl) 111 95-109 [place] 577071-07-15 10:13:00 Test Item Value Reference Range Interpretation Comments CO2 (test code = CO2) 21 24-32 [place] 577071-07-15 10:13:00 Test Item Value Reference Range Interpretation Comments AGAP (test code = AGAP) 14.3 10.0-20.0 [place] 577071-07-15 10:13:00 Test Item Value Reference Range Interpretation Comments Calcium Lvl (test code = Calcium Lvl) 6.5 8.5-10.5 [place] 577071-07-15 10:13:00 Test Item Value Reference Range Interpretation Comments eGFR (test code = eGFR) 80 [facility]NuwmeebPBXOALIWSV6811-01-54 09:18:00 Test Item Value Reference Range Interpretation Comments WBC (test code = WBC) 3.8 3.7-10.4 [place] 982891-07-15 09:18:00 Test Item Value Reference Range Interpretation Comments RBC (test code = RBC) 3.00 4.20-5.40 [place] 982891-07-15 09:18:00 Test Item Value Reference Range Interpretation Comments Hgb (test code = Hgb) 8.2 12.0-16.0 [place] [address]-07-15 09:18:00 Test Item Value Reference Range Interpretation Comments Hct (test code = Hct) 24.9 36.0-48.0 [place] [address]-07-15 09:18:00 Test Item Value Reference Range Interpretation Comments MCV (test code = MCV) 83.1 80.0-98.0 [place] [address]-07-15 09:18:00 Test Item Value Reference Range Interpretation Comments MCH (test code = MCH) 27.3 pg 27.0-31.0 [place] 982891-07-15 09:18:00 Test Item Value Reference Range Interpretation Comments MCHC (test code = MCHC) 32.9 32.0-36.0 [place] 982891-07-15 09:18:00 Test Item Value Reference Range Interpretation Comments RDW (test code = RDW) 14.7 11.5-14.5 [place] 982891-07-15 09:18:00 Test Item Value Reference Range Interpretation Comments Platelet (test code = Platelet) 314 133-450 [place] 982891-07-15 09:18:00 Test Item Value Reference Range Interpretation Comments MPV (test code = MPV) 7.0 7.4-10.4 [place] 982891-07-15 09:18:00 Test Item Value Reference Range Interpretation Comments Segs (test code = Segs) 50.0 45.0-75.0 [place] 982891-07-15 09:18:00 Test Item Value Reference Range Interpretation Comments Lymphocytes (test code = Lymphocytes) 39.3 20.0-40.0 [place] 982891-07-15 09:18:00 Test Item Value Reference Range Interpretation Comments Monocytes (test code = Monocytes) 8.4 2.0-12.0 [place] 982891-07-15 09:18:00 Test Item Value Reference Range Interpretation Comments Eosinophils (test code = 1.7 See_Comment [A utomated message] The Eosinophils) system which ge nerated this result tra nsmitted reference range : <=4.0. The reference r jonas was not used to int erpret this result as normal/abnormal . [place] 982891-07-15 09:18:00 Test Item Value Reference Range Interpretation Comments Basophils (test code = 0.6 See_Comment [Aut omated message] The Basophils) system which ge nerated this result tra nsmitted reference range : <=1.0. The reference r jonas was not used to int erpret this result as normal/abnormal . [place] 982891-07-15 09:18:00 Test Item Value Reference Range Interpretation Comments Neutrophils # (test code = Neutrophils 1.9 1.5-8.1 #) [place] 982891-07-15 09:18:00 Test Item Value Reference Range Interpretation Comments Lymphocytes # (test code = Lymphocytes 1.5 1.0-5.5 #) [place] 982891-07-15 09:18:00 Test Item Value Reference Range Interpretation Comments Monocytes # (test code 0.3 See_Comment [Aut omated message] The = Monocytes #) system which generated this result tra nsmitted reference range : <=0.8. The reference r jonas was not used to int erpret this result as normal/abnormal . [place] [address]-07-15 09:18:00 Test Item Value Reference Range Interpretation Comments Eosinophils # (test code 0.1 See_Comment [A utomated message] The = Eosinophils #) system whic h generated this result tra nsmitted reference range : <=0.5. The reference r jonas was not used to int erpret this result as normal/abnormal . [place] 577071-07-14 09:25:00 Test Item Value Reference Range Interpretation Comments Glucose Lvl (test code = Glucose Lvl) 107 70-99 [place] 577071-07-14 09:25:00 Test Item Value Reference Range Interpretation Comments BUN (test code = BUN) 14 7-22 [place] [address]-07-14 09:25:00 Test Item Value Reference Range Interpretation Comments Creatinine Lvl (test code = Creatinine 0.84 0.50-1.40 Lvl) [place] [address]-07-14 09:25:00 Test Item Value Reference Range Interpretation Comments Sodium Lvl (test code = Sodium Lvl) 141 135-145 [place] 577071-07-14 09:25:00 Test Item Value Reference Range Interpretation Comments Potassium Lvl (test code = Potassium 3.1 3.5-5.1 Lvl) [place] 577071-07-14 09:25:00 Test Item Value Reference Range Interpretation Comments Chloride Lvl (test code = Chloride Lvl) 110 95-109 [place] [address]-07-14 09:25:00 Test Item Value Reference Range Interpretation Comments CO2 (test code = CO2) 27 24-32 [place] [address]-07-14 09:25:00 Test Item Value Reference Range Interpretation Comments AGAP (test code = AGAP) 7.1 10.0-[facility].0 [facility] [id number] 09:25:00 Test Item Value Reference Range Interpretation Comments Calcium Lvl (test code = Calcium Lvl) 7.2 8.5-10.5 [facility] [id number] 09:25:00 Test Item Value Reference Range Interpretation Comments B/C Ratio (test code = B/C Ratio) 17 1 6-25 [facility] [email or web address] [id number] 09:25:00 Test Item Value Reference Range Interpretation Comments Total Protein (test code = Total 6.3 6.4-8.4 Protein) [facility] [id number] 09:25:00 Test Item Value Reference Range Interpretation Comments Albumin Lvl (test code = Albumin Lvl) 2.7 3.5-5.0 [facility] [email or web address] [id number] 09:25:00 Test Item Value Reference Range Interpretation Comments Globulin (test code = Globulin) 3.6 2.7-4.2 [facility] [email or web address] [id number] 09:25:00 Test Item Value Reference Range Interpretation Comments A/G Ratio (test code = A/G Ratio) 0.8 1 0.7-1.6 [facility] [email or web address] [id number] 09:25:00 Test Item Value Reference Range Interpretation Comments ALT (test code = ALT) 18 See_Comment [Auto mated message] The system which ge nerated this result transmit lawrence reference range : <=65. The reference range was not used to interpr et this result as ryan l/abnormal. [facility] [email or web address] [id number] 09:25:00 Test Item Value Reference Range Interpretation Comments AST (test code = AST) 13 See_Comment [Auto mated message] The system which ge nerated this result transmit lawrence reference range : <=37. The reference range was not used to interpr et this result as ryan l/abnormal. [facility] [email or web address] [id number] 09:25:00 Test Item Value Reference Range Interpretation Comments Alk Phos (test code = Alk Phos) 108 39-136 [facility] [email or web address] [id number] 09:25:00 Test Item Value Reference Range Interpretation Comments Bili Total (test code = Bili Total) 0.7 0.2-1.3 [facility]2021-07-14 09:25:00 Test Item Value Reference Range Interpretation Comments eGFR (test code = eGFR) 73 [facility]KwhoxxhEKNPQSEKMG7080-31-89 09:25:00 Test Item Value Reference Range Interpretation Comments WBC (test code = WBC) 5.0 3.7-10.4 [facility]entonPnuhsicPOCABBUCRL2257-99-14 09:25:00 Test Item Value Reference Range Interpretation Comments RBC (test code = RBC) 3.04 4.20-5.40 [facility]PhmrteyRWNKOANTDY4595-02-01 09:25:00 Test Item Value Reference Range Interpretation Comments Hgb (test code = Hgb) 8.2 12.0-16.0 [place] 982891-07-14 09:25:00 Test Item Value Reference Range Interpretation Comments Hct (test code = Hct) 24.9 36.0-48.0 [place] 982891-07-14 09:25:00 Test Item Value Reference Range Interpretation Comments MCV (test code = MCV) 82.1 80.0-98.0 [facility]entonZxajvjtJZGJFEHERB9829-34-15 09:25:00 Test Item Value Reference Range Interpretation Comments MCH (test code = MCH) 27.1 pg 27.0-31.0 [id number] 09:25:00 Test Item Value Reference Range Interpretation Comments MCHC (test code = MCHC) 32.9 32.0-36.0 [id number] 09:25:00 Test Item Value Reference Range Interpretation Comments RDW (test code = RDW) 14.8 11.5-14.5 [place] 982891-07-14 09:25:00 Test Item Value Reference Range Interpretation Comments Platelet (test code = Platelet) 297 133-450 [facility]entonKuiauxbUBSTCNNTLY3075-97-18 09:25:00 Test Item Value Reference Range Interpretation Comments MPV (test code = MPV) 7.0 7.4-10.4 [facility][id number] 09:25:00 Test Item Value Reference Range Interpretation Comments PT (test code = PT) 13.7 s 12.0-14.7 [facility]entonTbdgyrnOJMJYSWTNX3518-44-94 09:25:00 Test Item Value Reference Range Interpretation Comments INR (test code = INR) 1.06 1 0.85-1.17 [place] 982891-07-14 09:25:00 Test Item Value Reference Range Interpretation Comments PTT (test code = PTT) 27.8 s 22.9-35.8 [place] 982891-07-14 09:25:00 Test Item Value Reference Range Interpretation Comments Segs (test code = Segs) 56.8 45.0-75.0 [place] 982891-07-14 09:25:00 Test Item Value Reference Range Interpretation Comments Lymphocytes (test code = Lymphocytes) 34.8 20.0-40.0 [place] 982891-07-14 09:25:00 Test Item Value Reference Range Interpretation Comments Monocytes (test code = Monocytes) 6.5 2.0-12.0 [place] 982891-07-14 09:25:00 Test Item Value Reference Range Interpretation Comments Eosinophils (test code = 1.4 See_Comment [A utomated message] The Eosinophils) system which ge nerated this result tra nsmitted reference range : <=4.0. The reference r jonas was not used to int erpret this result as normal/abnormal . [facility]ent[id number] 09:25:00 Test Item Value Reference Range Interpretation Comments Basophils (test code = 0.5 See_Comment [Aut omated message] The Basophils) system which ge nerated this result tra nsmitted reference range : <=1.0. The reference r jonas was not used to int erpret this result as normal/abnormal . [facility]entonFzofltpLKYWTXDGAS0651-56-12 09:25:00 Test Item Value Reference Range Interpretation Comments Neutrophils # (test code = Neutrophils 2.8 1.5-8.1 #) [place] 982891-07-14 09:25:00 Test Item Value Reference Range Interpretation Comments Lymphocytes # (test code = Lymphocytes 1.7 1.0-5.5 #) [place] 982891-07-14 09:25:00 Test Item Value Reference Range Interpretation Comments Monocytes # (test code 0.3 See_Comment [Aut omated message] The = Monocytes #) system which generated this result tra nsmitted reference range : <=0.8. The reference r jonas was not used to int erpret this result as normal/abnormal . [facility] [id number] 09:25:00 Test Item Value Reference Range Interpretation Comments Eosinophils # (test code 0.1 See_Comment [A utomated message] The = Eosinophils #) system whic h generated this result tra nsmitted reference range : <=0.5. The reference r jonas was not used to int erpret this result as normal/abnormal . [facility] [id number] 02:07:00 Test Item Value Reference Range Interpretation Comments RBC product (test code Product available = RBC product) 4(01/19/21 9:07 PM) [facility] [id number] 21:49:00 Test Item Value Reference Range Interpretation Comments Coronavirus (COVID-19) Not Detected (01/19/21 YARELY (test code = 4:49 PM) Coronavirus (COVID-19) YARELY) [facility] [id number] 20:55:00 Test Item Value Reference Range Interpretation Comments RBC product (test code Product available = RBC product) 5(01/19/21 3:55 PM) [facility] [id number] 18:06:00 Test Item Value Reference Range Interpretation Comments ABO/Rh (test code = ABO/Rh) O [employer] [id number] 18:06:00 Test Item Value Reference Range Interpretation Comments Antibody Scrn (test Negative (01/19/21 1:06 code = Antibody Scrn) PM) [employer]2021-07-13 18:06:00 Test Item Value Reference Range Interpretation Comments Glucose Lvl (test code = Glucose Lvl) 106 70-99 [facility] [email or web address] [id number] 18:06:00 Test Item Value Reference Range Interpretation Comments BUN (test code = BUN) 19 7-22 [employer]2021-07-13 18:06:00 Test Item Value Reference Range Interpretation Comments Creatinine Lvl (test code = Creatinine 0.89 0.50-1.40 Lvl) [employer]2021-07-13 18:06:00 Test Item Value Reference Range Interpretation Comments Sodium Lvl (test code = Sodium Lvl) 140 135-145 [facility] [employer]2021-07-13 18:06:00 Test Item Value Reference Range Interpretation Comments Potassium Lvl (test code = Potassium 3.7 3.5-5.1 Lvl) [place] 577071-07-13 18:06:00 Test Item Value Reference Range Interpretation Comments Chloride Lvl (test code = Chloride Lvl) 108 95-109 [place] 577071-07-13 18:06:00 Test Item Value Reference Range Interpretation Comments CO2 (test code = CO2) 30 24-32 [place] 577071-07-13 18:06:00 Test Item Value Reference Range Interpretation Comments Calcium Lvl (test code = Calcium Lvl) 7.9 8.5-10.5 [place] 577071-07-13 18:06:00 Test Item Value Reference Range Interpretation Comments Total Protein (test code = Total 6.9 6.4-8.4 Protein) [place] 577071-07-13 18:06:00 Test Item Value Reference Range Interpretation Comments Albumin Lvl (test code = Albumin Lvl) 3.1 3.5-5.0 [facility] SARL [id number] 18:06:00 Test Item Value Reference Range Interpretation Comments ALT (test code = ALT) 18 See_Comment [Auto mated message] The system which ge nerated this result transmit lawrence reference range : <=65. The reference range was not used to interpr et this result as ryan l/abnormal. [place] 577071-07-13 18:06:00 Test Item Value Reference Range Interpretation Comments AST (test code = AST) 14 See_Comment [Auto mated message] The system which ge nerated this result transmit lawrence reference range : <=37. The reference range was not used to interpr et this result as ryan l/abnormal. [place] 577071-07-13 18:06:00 Test Item Value Reference Range Interpretation Comments Alk Phos (test code = Alk Phos) 115 39-136 [facility] [id number] 18:06:00 Test Item Value Reference Range Interpretation Comments Bili Total (test code = Bili Total) 0.2 0.2-1.3 [place] 577071-07-13 18:06:00 Test Item Value Reference Range Interpretation Comments AGAP (test code = AGAP) 5.7 10.0-20.0 [place] 577071-07-13 18:06:00 Test Item Value Reference Range Interpretation Comments B/C Ratio (test code = B/C Ratio) 21 1 6-25 [place] 577071-07-13 18:06:00 Test Item Value Reference Range Interpretation Comments Globulin (test code = Globulin) 3.8 2.7-4.2 [place] 577071-07-13 18:06:00 Test Item Value Reference Range Interpretation Comments A/G Ratio (test code = A/G Ratio) 0.8 1 0.7-1.6 [place] 577071-07-13 18:06:00 Test Item Value Reference Range Interpretation Comments eGFR (test code = eGFR) 68 [place] 577071-07-13 18:06:00 Test Item Value Reference Range Interpretation Comments Lipase Lvl (test code = Lipase Lvl) 119 73-393 [place] 982891-07-13 18:06:00 Test Item Value Reference Range Interpretation Comments WBC (test code = WBC) 6.9 3.7-10.4 [place] 982891-07-13 18:06:00 Test Item Value Reference Range Interpretation Comments RBC (test code = RBC) 2.58 4.20-5.40 [place] [id number] 18:06:00 Test Item Value Reference Range Interpretation Comments Hgb (test code = Hgb) 6.8 12.0-16.0 [place] [id number] 18:06:00 Test Item Value Reference Range Interpretation Comments Hct (test code = Hct) 21.2 36.0-48.0 [place] [id number] 18:06:00 Test Item Value Reference Range Interpretation Comments MCV (test code = MCV) 82.2 80.0-98.0 [place] [id number] 18:06:00 Test Item Value Reference Range Interpretation Comments MCH (test code = MCH) 26.3 pg 27.0-31.0 [place] [id number] 18:06:00 Test Item Value Reference Range Interpretation Comments MCHC (test code = MCHC) 32.0 32.0-36.0 [place] [id number] 18:06:00 Test Item Value Reference Range Interpretation Comments RDW (test code = RDW) 15.3 11.5-14.5 [place] [id number] 18:06:00 Test Item Value Reference Range Interpretation Comments Platelet (test code = Platelet) 393 133-450 [place] [id number] 18:06:00 Test Item Value Reference Range Interpretation Comments MPV (test code = MPV) 6.8 7.4-10.4 [place] [id number] 18:06:00 Test Item Value Reference Range Interpretation Comments PT (test code = PT) 13.3 s 12.0-14.7 [place] [id number] 18:06:00 Test Item Value Reference Range Interpretation Comments INR (test code = INR) 1.02 1 0.85-1.17 [place] [id number] 18:06:00 Test Item Value Reference Range Interpretation Comments PTT (test code = PTT) 28.9 s 22.9-35.8 [place] [id number] 18:06:00 Test Item Value Reference Range Interpretation Comments Segs (test code = Segs) 63.4 45.0-75.0 [place] [id number] 18:06:00 Test Item Value Reference Range Interpretation Comments Lymphocytes (test code = Lymphocytes) 29.7 20.0-40.0 [place] [address]-07-13 18:06:00 Test Item Value Reference Range Interpretation Comments Monocytes (test code = Monocytes) 5.7 2.0-12.0 [place] [address]-07-13 18:06:00 Test Item Value Reference Range Interpretation Comments Eosinophils (test code = 0.5 See_Comment [A utomated message] The Eosinophils) system which ge nerated this result tra nsmitted reference range : <=4.0. The reference r jonas was not used to int erpret this result as normal/abnormal . [place] [address]-07-13 18:06:00 Test Item Value Reference Range Interpretation Comments Basophils (test code = 0.7 See_Comment [Aut omated message] The Basophils) system which ge nerated this result tra nsmitted reference range : <=1.0. The reference r jonas was not used to int erpret this result as normal/abnormal . [id number] 18:06:00 Test Item Value Reference Range Interpretation Comments Neutrophils # (test code = Neutrophils 4.4 1.5-8.1 #) [id number] 18:06:00 Test Item Value Reference Range Interpretation Comments Lymphocytes # (test code = Lymphocytes 2.0 1.0-5.5 #) [id number] 18:06:00 Test Item Value Reference Range Interpretation Comments Monocytes # (test code 0.4 See_Comment [Aut omated message] The = Monocytes #) system which generated this result tra nsmitted reference range : <=0.8. The reference r jonas was not used to int erpret this result as normal/abnormal . [facility] AND [id number] 18:06:00 Test Item Value Reference Range Interpretation Comments UA Color (test code = Light Yellow UA Color) *NA*(01/19/21 1:06 PM) [facility] AND [id number] 18:06:00 Test Item Value Reference Range Interpretation Comments UA Turbidity (test code = Clear (01/19/21 1:06 UA Turbidity) PM) [facility] AND [id number] 18:06:00 Test Item Value Reference Range Interpretation Comments UA Spec Grav (test code = UA Spec 1.015 1 Grav) [facility] AND [id number] 18:06:00 Test Item Value Reference Range Interpretation Comments UA pH (test code = UA pH) 6.0 1 5.0-8.0 [facility] AND [id number] 18:06:00 Test Item Value Reference Range Interpretation Comments UA Protein (test code = UA Negative mg/dL Protein) [facility] AND [id number] 18:06:00 Test Item Value Reference Range Interpretation Comments UA Glucose (test code = UA Negative mg/dL Glucose) [facility] AND [id number] 18:06:00 Test Item Value Reference Range Interpretation Comments UA Bili (test code = Negative *NA*(01/19/21 UA Bili) 1:06 PM) [facility] AND [id number] 18:06:00 Test Item Value Reference Range Interpretation Comments UA Blood (test code = Negative (01/19/21 1:06 UA Blood) PM) [facility] AND [id number] 18:06:00 Test Item Value Reference Range Interpretation Comments UA Nitrite (test code Negative (01/19/21 1:06 = UA Nitrite) PM) [facility] AND [id number] 18:06:00 Test Item Value Reference Range Interpretation Comments UA Leuk Est (test Negative (01/19/21 1:06 code = UA Leuk Est) PM) [facility] AND [id number] 18:06:00 Test Item Value Reference Range Interpretation Comments UA Sq Epi (test code = UA Sq Occasional /LPF Epi) [facility] AND [id number] 18:06:00 Test Item Value Reference Range Interpretation Comments UA WBC (test code = 1 See_Comment [Automa lawrence message] The UA WBC) system which ge nerated this result transmit lawrence reference range : <=5. The reference range was not used to interpr et this result as ryan l/abnormal. [facility] AND [id number] 18:06:00 Test Item Value Reference Range Interpretation Comments UA Bacteria (test code = UA Occasional /HPF Bacteria) [facility] AND [id number] 18:06:00 Test Item Value Reference Range Interpretation Comments UA Mucus (test code = UA Mucus) Few /LPF [facility] AND [id number] 18:06:00 Test Item Value Reference Range Interpretation Comments UA Ketones (test code = UA Ketones) Negative [facility] AND [id number] 18:06:00 Test Item Value Reference Range Interpretation Comments UA Urobilinogen (test code = UA <=1.0 mg/dL 0.1-1.0 Urobilinogen) [facility]; 2 viewsCLINICAL INDICATION: R05 CoughTECHNIQUE: PA and lateral views of the chest.FINDINGS: Comparison study: No previous examination.The lungs are clear. There are no infiltrates or effusions.The cardiac silhouette is unremarkable. The sukhjinder and mediastinum are intact.The regional skeleton is intact.IMPRESSION:No active process.
[2022-07-03] MEDS ORDERED: KETOROLAC 30 MG/ML INJ ONE (19:15)
--- NOTE | 2022-07-03 20:00 | ER ---
Nurse's Notes [facility] Name: Tammy Bess Age: 67 yrs Sex: Female : 1955 Arrival Date: 07/03/2022 Time: 18:40 Bed 13 Private MD: Diagnosis: Pain in right upper arm Presentation: 07/03 18:42 Chief complaint: Right shoulder pain that radiates to right arm after fall from standing 1 week ago. Coronavirus screen: At this time, the client does not indicate any symptoms associated with coronavirus-19. Ebola Screen: No symptoms or risks identified at this time. Initial Sepsis Screen: Does the patient meet any 2 criteria? No. Patient's initial sepsis screen is negative. Does the patient have a suspected source of infection? No. Patient's initial sepsis screen is negative. Risk Assessment: Do you want to hurt yourself or someone else? Patient reports no desire to harm self or others. Onset of symptoms was June 25, 2022. 18:42 Method Of Arrival: Ambulatory hb 18:42 Acuity: NASIM 4 hb Historical: - Allergies: 18:42 No Known Allergies; hb - PMHx: 18:42 Asthma; hiatal hernia; Hypertensive disorder; hb - Immunization history:: Adult Immunizations up to date. - Social history:: Smoking status: Patient denies any tobacco usage or history of. Screenin:15 [facility] ED Fall Risk Assessment (Adult) History of falling in the last 3 months, jb4 including since admission No falls in past 3 months (0 pts) Confusion or Disorientation No (0 pts) Intoxicated or Sedated No (0 pts) Impaired Gait No (0 pts) Mobility Assist Device Used No (0 pt) Altered Elimination No (0 pt) Score/Fall Risk Level 0 - 2 = Low Risk Oriented to surroundings, Maintained a safe environment. Abuse screen: Denies threats or abuse. Nutritional screening: No deficits noted. Tuberculosis screening: No symptoms or risk factors identified. Assessment: 19:14 General: Appears in no apparent distress. comfortable, Behavior is calm, cooperative, jb4 appropriate for age. Pain: Complains of pain in right arm Pain radiates to right scapular area Pain currently is 7 out of 10 on a pain scale. Quality of pain is described as throbbing. Neuro: Level of Consciousness is awake, alert, obeys commands, Oriented to person, place, time, situation. Cardiovascular: Patient's skin is warm and dry. Respiratory: Airway is patent Respiratory effort is even, unlabored, Respiratory pattern is regular, symmetrical. GI: No signs and/or symptoms were reported involving the gastrointestinal system. : No signs and/or symptoms were reported regarding the genitourinary system. EENT: No signs and/or symptoms were reported regarding the EENT system. Derm: Skin is intact, Skin is pink, warm \T\ dry. Musculoskeletal: Circulation, motion, and sensation intact. Range of motion: intact in all extremities. 20:09 Reassessment: Patient appears in no apparent distress at this time. Patient and/or jb4 family updated on plan of care and expected duration. Pain level reassessed. Patient is alert, oriented x 3, equal unlabored respirations, skin warm/dry/pink. Vital Signs: 18:42 BP 269 / 101; Pulse 107; Resp 16; Temp 99(TE); Pulse Ox 100% ; Weight 63.5 kg; Height 5 hb ft. 6 in. (167.64 cm); Pain 6/10; 19:09 BP 159 / 99; Pulse 101; Resp 16; Pulse Ox 99% on R/A; Pain 7/10; jb4 19:45 BP 169 / 106; Pulse 96; Resp 16; Pulse Ox 97% on R/A; jb4 18:42 Body Mass Index 22.60 (63.50 kg, 167.64 cm) hb ED Course: 18:40 Patient arrived in ED. mr 18:41 Adilia Menendez FNP-C is [facility]. kb 18:41 Jamison Campos MD is Attending Physician. kb 18:44 Triage completed. hb 18:44 Arm band placed on. hb 19:04 Fermin Garrett, RN is Primary Nurse. jb4 19:15 Patient has correct armband on for positive identification. Placed in gown. Bed in low jb4 position. Call light in reach. Side rails up X 1. Client placed on continuous cardiac and pulse oximetry monitoring. NIBP monitoring applied. 19:40 Humerus Right XRAY In Process Unspecified. EDMS 20:09 No provider procedures requiring assistance completed. Patient did not have IV access jb4 during this emergency room visit. Administered Medications: 19:21 Drug: Ketorolac 30 mg Route: IM; Site: right gluteus; jb4 20:09 Follow up: Response: No adverse reaction; Pain is decreased jb4 Outcome: 19:59 Discharge ordered by MD. ortez 20:09 Discharged to home ambulatory. jb4 20:09 Condition: stable 20:09 Discharge instructions given to patient, Instructed on discharge instructions, follow up and referral plans. no drinking with medication, no driving heavy equipment, medication usage, Demonstrated understanding of instructions, follow-up care, medications, Prescriptions given X 2. 20:10 Patient left the ED. jb4 Signatures: Dispatcher [employer] EDMS Adilia Menendez, LIBRARY SUPERVISORMarkosC LIBRARY SUPERVISOR-Lila Mcneil Heather, RN RN Fermin Khan RN RN jb4
--- NOTE | 2022-07-03 20:00 | EDPHYS ---
Physician Documentation [facility] Name: Tammy Bess Age: 67 yrs Sex: Female : 1955 Arrival Date: 07/03/2022 Time: 18:40 Bed 13 Private MD: ED Physician Jamison Campos HPI: 07/03 18:53 This 67 yrs old Female presents to ER via Ambulatory with complaints of Arm Injury, kb Shoulder Injury. 18:53 The patient or guardian complains of pain, that is acute. The complaints affect the kb right upper arm. Context: The problem was sustained at home, resulted from a fall. Onset: The symptoms/episode began/occurred 8 day(s) ago. Treatment prior to arrival includes: no previous treatment. Modifying factors: The symptoms are alleviated by nothing. the symptoms are aggravated by movement. Associated signs and symptoms: Pertinent positives: pain. Severity of symptoms: At their worst the symptoms were moderate, in the emergency department the symptoms are unchanged. The patient has not experienced similar symptoms in the past. The patient has not recently seen a physician. Pt reports she fell onto right arm on 06/25 and still has pain to right humerus area. States she tried acupuncture and massage without relief . Historical: - Allergies: 18:42 No Known Allergies; hb - PMHx: 18:42 Asthma; hiatal hernia; Hypertensive disorder; hb - Immunization history:: Adult Immunizations up to date. - Social history:: Smoking status: Patient denies any tobacco usage or history of. ROS: 18:53 Constitutional: Negative for fever, chills, and weight loss. kb 18:53 MS/extremity: Positive for pain, of the right upper arm. 18:53 All other systems are negative. Exam: 18:53 Constitutional: This is a well developed, well nourished patient who is awake, alert, kb and in no acute distress. Head/Face: Normocephalic, atraumatic. ENT: Moist Mucous membranes Cardiovascular: Regular rate and rhythm with a normal S1 and S2. No gallops, murmurs, or rubs. No pulse deficits. Respiratory: Respirations even and unlabored. No increased work of breathing. Talking in full sentences Abdomen/GI: Soft, non-tender. No distention Skin: Warm, dry with normal turgor. Normal color. Neuro: Awake and alert, GCS 15, oriented to person, place, time, and situation. Moves all extremities. Normal gait. Psych: Awake, alert, with orientation to person, place and time. Behavior, mood, and affect are within normal limits. 18:53 Musculoskeletal/extremity: Extremities: grossly normal except: noted in the right upper arm: pain, ROM: intact in all extremities, Circulation is intact in all extremities. Sensation intact. Vital Signs: 18:42 BP 269 / 101; Pulse 107; Resp 16; Temp 99(TE); Pulse Ox 100% ; Weight 63.5 kg; Height 5 hb ft. 6 in. (167.64 cm); Pain 6/10; 19:09 BP 159 / 99; Pulse 101; Resp 16; Pulse Ox 99% on R/A; Pain 7/10; jb4 19:45 BP 169 / 106; Pulse 96; Resp 16; Pulse Ox 97% on R/A; jb4 18:42 Body Mass Index 22.60 (63.50 kg, 167.64 cm) hb MDM: 18:41 Patient medically screened. kb 18:53 Data reviewed: vital signs, nurses notes. Data interpreted: Pulse oximetry: on room air kb is 100 %. Interpretation: normal. 19:51 Counseling: I had a detailed discussion with the patient and/or guardian regarding: the kb historical points, exam findings, and any diagnostic results supporting the discharge/admit diagnosis, radiology results, the need for outpatient follow up, a orthopedic surgeon, to return to the emergency department if symptoms worsen or persist or if there are any questions or concerns that arise at home. 07/03 18:43 Order name: Humerus Right XRAY 07/03 18:55 Order name: Vital Signs; Complete Time: 19:10 kb Administered Medications: 19:21 Drug: Ketorolac 30 mg Route: IM; Site: right gluteus; jb4 20:09 Follow up: Response: No adverse reaction; Pain is decreased jb4 Disposition Summary: 07/03/22 19:59 Discharge Ordered Location: Home Condition: Stable kb Diagnosis - Pain in right upper arm kb Followup: kb - With: Emergency Department - When: As needed - Reason: Worsening of condition Followup: kb - With: Private Physician - When: 2 - 3 days - Reason: Recheck today's complaints, Continuance of care, Re-evaluation by your physician Discharge Instructions: - Discharge Summary Sheet kb - Musculoskeletal Pain kb Forms: - Medication Reconciliation Form kb - Thank You Letter kb - Antibiotic Education kb - Prescription Opioid Use kb Prescriptions: - Diclofenac Sodium 75 mg Oral tablet,delayed release (DR/EC) - take 1 tablet by ORAL route 2 times per day As needed; 30 tablet; Refills: 0, kb Product Selection Permitted - orphenadrine citrate 100 mg Oral Tablet Sustained Release - take 1 tablet by ORAL route 2 times per day As needed; 20 tablet; Refills: 0, kb Product Selection Permitted Signatures: Dispatcher [employer] EDWY Adilia Menendez, WELFARE INVESTIGATOR-C WELFARE INVESTIGATOR-Deepa Willis RN RN Fermin Garrett RN RN jb4
--- NOTE | 2022-07-03 20:04 | RAD REPORT ---
EXAM DESCRIPTION: RAD - Humerus Right - 07/03/2022 7:39 pm CLINICAL HISTORY: PAIN COMPARISON: No comparisons FINDINGS: Diffuse osteopenia is seen. No acute fracture or dislocation seen.
[2022-07-03 20:17] VITALS: TEMP 99
[2022-07-03 20:20] VITALS: BP 169/106; O2SAT 97
== END 2022-07-03 20:10 | disposition home or self-care (01) ==
LOC: ER 18:35
DX: M79.621 Pain in right upper arm (principal)
CPT/HCPCS: 96372; 99283

== ENCOUNTER 2025-02-15 12:23 | Emergency (ER) | payer OTHER, BC ==
--- OUTSIDE RECORDS SUMMARY | 2025-02-15 12:27 | XMS REPORT | Continuity of Care Document ---
Author Name Unknown Address [address] [facility] [place] [address] [facility] [address] [facility] [place] [address] Care Team Providers Care Heat Treating Furnace Tender Name Role Phone Aj Dolores [facility] Primary Care Physician [phone] ABDON GREEN Attending Clinician Un available JOSLYN CREWS Attending Clinician Unavail able ANA العراقي Attending Clinician Unavaila ANA Hernandez Attending Clinician Unavaila [facility] Att[facility]ician Unava KENNETH Garcia Attending Clinician Tana ABDON Navas Attending Clinician Unavail able TAMMY GARY Attending Clinician Unavai JOSLYN Hughes Attending Clinician Unavail able LAINA ASHTON Attending Clinician MARY Luther Attending Clinician Unavaila MARY Portillo Admitting Clinician Unavaila ble Payers Payer Name Policy Type Policy Number Effective Date Expirati on Date Source [employer] PPO AND OUT OF STATE [id number] 2007 00:00:00 2024 00:00:00 MEDICARE PART A AND B Medicare [id number] 2024 00:00:00 BCBS COMM [id number] 2024 00:00:00 Problems Condition Name Condition Details Condition Category Status Onset Date Resolution Date Last Treatment Date Treating Clinician Comments Source CHEST PAIN, UNSPECIFIE D, SHORTNESS OF BR CHEST PAIN, UNSPECIFIE D, SHORTNESS OF BR Active 02/16/2022 [facility] Diagnosis Active 8-10 00:00: 00 2022-02-21 08:53:00 Catherine Wu 4 WK FU 4 WK FU Active 02/16/2022 [facility] Diagnosis Active 8- 00:00: 00 2022-04-18 12:03:00 Catherine Wu REF BY DR. DOLORES DE LEON/ CARDIAC CLEARAN REF BY DR. DOLORES DE LEON/ CARDIAC CLEARAN Active 12/22/2021 [facility] Diagnosis Active 6-15 00:00: 00 2022-02-16 15:08:00 Catherine Wu INTERSTITI AL PULMONARY DISEASE INTERSTITI AL PULMONARY DISEASE Active 11/24/2021 [facility] Diagnosis Active 5-18 00:00: 00 2021-12-16 14:09:00 Catherine Wu GERD K44.9 K20.91 GERD K44.9 K20.91 Active 10/11/2021 [facility] Diagnosis Active 4-04 00:00: 00 2021-10-29 07:38:00 Catherine Wu UNK UNK Active [facility] Diagnosis Active 2-25 00:00: 00 2021-09-03 08:07:00 Catherine Wu ESOPHAGEAL STRICTURE ESOPHAGEAL STRICTURE Active 07/15/2021 [facility] Diagnosis Active 1-06 00:00: 00 2021-09-03 14:29:00 Catherine Wu PHONE VISIT PHONE VISIT Active 07/13/2021 [facility] Diagnosis Active 0 1-04 00:00: 00 2021-07-20 13:52:00 Memtasha Wu ULCERATIVE ESOPHAGITI S, HIATAL HERNIA, H ULCERATIVE ESOPHAGITI S, HIATAL HERNIA, H Active 04/30/2021 [facility] Diagnosis Active 2020-07 0- 00:00: 00 2021-06-14 12:33:00 Catherine Wu ULCER OF ESOPHAGUS WITHOUT BLEEDING, ESS ULCER OF ESOPHAGUS WITHOUT BLEEDING, ESS Active 04/06/2021 [facility] Diagnosis Active 0 04-06 00:00: 00 2021-04-12 16:35:00 Catherine Wu ABDOMINAL PAIN DISPHAGIA ABDOMINAL PAIN DISPHAGIA Active 04/06/2021 [facility] Diagnosis Active 04-06 00:00: 00 2021-04-08 11:34:00 Catherine Wu GERD GERD Active 03/26/2021 [facility] Diagnosis Active 03-26 00:00: 00 2021-03-31 11:45:00 Catherine Wu SENT BY PCP FOR BLOODY STOOL SENT BY PCP FOR BLOODY STOOL Active 01/19/2021 [facility] Diagnosis Active - 00:00: 00 2021-01-19 16:42:00 Catherine Wu UPPER GO BLEED; ANEMIA; PEPTIC ULCER DIS UPPER GO BLEED; ANEMIA; PEPTIC ULCER DIS Active 01/19/2021 [facility] Diagnosis Active 0 7- 00:00: 00 2021-01-20 11:32:00 Catherine Wu R92.2 INCONCLUSI VE MAMMOGRAM R92.2 INCONCLUSI VE MAMMOGRAM Active 11/05/2020 [facility] Diagnosis Active 0 - 00:00: 00 2020-11-10 11:59:00 Catherine Wu Z12.31 ROUTINE, M81.0 OSTEOPOROS IS Z12.31 ROUTINE, M81.0 OSTEOPOROS IS Active 10/27/2020 [facility] Diagnosis Active 0 4-20 00:00: 00 2020-11-03 10:52:00 Catherine Wu Z12.31 ROUTINE, AGE-RELATE D OSTEOPOROS I Z12.31 ROUTINE, AGE-RELATE D OSTEOPOROS I Active 10/27/2020 [facility] Diagnosis Active 4-20 00:00: 00 2020-11-03 10:25:00 Memoria rhonda Wu COUGH COUGH Active [facility] Diagnosis Active 2017-07 0- 00:00: 00 2018-04-10 10:19:00 Memoria rhonda Wu R05 COUGH R05 COUGH Active 04/09/2018 [facility] Diagnosis Active 2017-07 0- 00:00: 00 2018-04-10 10:19:00 Memoria rhonda [place] R92.8 OTHER ABNORMAL AND INCONCLUSI VE F R92.8 OTHER ABNORMAL AND INCONCLUSI VE F Active 04/14/2017 [facility] Diagnosis Active 2016-07 0- 00:00: 00 2017-04-18 13:58:00 Memoria rhonda Wu N63 N63 Active 02/15/2017 [facility] Diagnosis Active 8 00:00: 00 2017-02-22 10:11:00 Memoria rhonda Wu LUMP IN BREAST, OTHER OSTEOPOROS IS LUMP IN BREAST, OTHER OSTEOPOROS IS Active 02/15/2017 [facility] Diagnosis Active 8 00:00: 00 2017-02-22 15:38:00 Memoria rhonda Wu Diaphragma tic hernia without obstructio n or gangrene Diaphragma tic hernia without obstructio n or gangrene 10/28/2018 [facility] Problem 2018-10-28 14:11:30 Catherine Wu Anxiety (finding) Anxiety (finding) Active Problem 02/24/2022 [facility] Problem Active 2022-02-24 00:07:16 Memtasha Wu Asthma (disorder) Asthma (disorder) [facility] 2022-02-24 00:07:16 Radhaoria rhonda Wu Gastroesop hageal reflux disease (disorder) Gastroesop hageal reflux disease (disorder) Active [facility] Active 2022-02-24 00:07:16 Memoria rhonda Wu Hypertensi ve disorder, systemic arterial (disorder) Hypertensi ve disorder, systemic arterial (disorder) Active Problem 02/24/2022 [facility] Problem Active 2022-02-24 00:07:16 Memtasha Wu Ulcerative esophagiti s (disorder) Ulcerative esophagiti s (disorder) Active Problem 02/24/2022 [facility] Problem Active 2022-02-24 00:07:16 Catherine Wu Anemia (disorder) Anemia (disorder) Active Problem 02/24/2022 [facility] Problem Active 2022-02-24 00:07:16 Memtasha Wu ULCER OF ESOPHAGUS WITHOUT BLEEDING ULCER OF ESOPHAGUS WITHOUT BLEEDING Active [facility] Diagnosis Active 2021-06-14 12:33:00 Catherine Wu ESSENTIAL (PRIMARY) HYPERTENSI ON ESSENTIAL (PRIMARY) HYPERTENSI ON Active [facility] Diagnosis Active 2021-06-14 12:33:00 Catherine Wu GASTROINTE STINAL HEMORRHAGE , UNSPECIFIE D GASTROINTE STINAL HEMORRHAGE , UNSPECIFIE D Active [facility] Diagnosis Active 2021-01-20 11:32:00 Radhaoria rhonda Wu ANEMIA, UNSPECIFIE D ANEMIA, UNSPECIFIE D Active [facility] Diagnosis Active 2021-01-20 11:32:00 Catherine Wu PEPTIC ULC, SITE UNSP, UNSP AC OR CHR PEPTIC ULC, SITE UNSP, UNSP AC OR CHR Active [facility] Diagnosis Active 2021-01-20 11:32:00 Catherine Wu GASTRO-ESO PHAGEAL REFLUX DISEASE WITHOUT GASTRO-ESO PHAGEAL REFLUX DISEASE WITHOUT Active [facility] Diagnosis Active 2021-03-31 11:45:00 Catherine Wu AGE-RELATE D OSTEOPOROS IS W/O CURRENT PAT AGE-RELATE D OSTEOPOROS IS W/O CURRENT PAT Active [facility] Diagnosis Active 2020-11-03 10:52:00 Catherine Wu ENCNTR SCREEN MAMMOGRAM FOR MALIGNANT NE ENCNTR SCREEN MAMMOGRAM FOR MALIGNANT NE Active [facility] Diagnosis Active 2020-11-03 10:52:00 Catherine Wu INCONCLUSI VE MAMMOGRAM INCONCLUSI VE MAMMOGRAM Active [facility] Diagnosis Active 2020-11-10 11:59:00 Catherine Wu DIAPHRAGMA TIC HERNIA WITHOUT OBSTRUCTIO N DIAPHRAGMA TIC HERNIA WITHOUT OBSTRUCTIO N Active [facility] Diagnosis Active 2021-06-14 12:33:00 Catherine Wu ENCNTR FOR GENERAL ADULT MEDICAL EXAM W/ ENCNTR FOR GENERAL ADULT MEDICAL EXAM W/ Active [facility] Diagnosis Active 2022-02-16 15:08:00 Catherine Wu INTERSTITI AL PULMONARY DISEASE, UNSPECIF INTERSTITI AL PULMONARY DISEASE, UNSPECIF Active [facility] Diagnosis Active 2021-12-16 14:09:00 Catherine Wu UNSPECIFIE D ASTHMA, UNCOMPLICA LAWRENCE UNSPECIFIE D ASTHMA, UNCOMPLICA LAWRENCE Active [facility] Diagnosis Active 2021-12-16 14:09:00 Catherine Wu UNSPECIFIE D LUMP IN BREAST UNSPECIFIE D LUMP IN BREAST Active [facility] Diagnosis Active 2017-02-22 15:38:00 Catherine Wu OTHER OSTEOPOROS IS WITHOUT CURRENT PATHO OTHER OSTEOPOROS IS WITHOUT CURRENT PATHO Active [facility] Diagnosis Active 2017-02-22 15:38:00 Catherine Wu OTH ABN AND INCONCLUSI VE FINDINGS ON DX OTH ABN AND INCONCLUSI VE FINDINGS ON DX Active [facility] Diagnosis Active 2017-04-18 13:58:00 Catherine Wu CHEST PAIN, UNSPECIFIE D CHEST PAIN, UNSPECIFIE D Active [facility] Diagnosis Active 2022-02-21 08:53:00 Catherine Wu SHORTNESS OF BREATH SHORTNESS OF BREATH Active [facility] Diagnosis Active 2022-02-21 08:53:00 Catherine Wu History of Past Illness Condition Name Condition Details Condition Category Status Onset Date Resolution Date Last Treatment Date Treating Clinician Comments Source Encounter for preprocedu ral cardiovasc ular examinatio n Encounter for preprocedu ral cardiovasc ular examinatio n 02/16/2022 02/19/2022 [facility] Problem 2021- 8- 20:28: 00 2022-02-19 00:43:14 2022-02-19 00:43:14 Catherine Wu Shortness of breath Shortness of breath 02/16/2022 02/19/2022 [facility] Problem 2021- 8-10 20:28: 00 2022-02-19 00:43:14 2022-02-19 00:43:14 Catherine Wu Chest pain, unspecifie d Chest pain, unspecifie d 02/16/2022 [facility] Problem 2021- 8-10 20:28: 00 2022-02-19 00:43:14 2022-02-19 00:43:14 Catherine Wu Gastro-eso phageal reflux disease without esophagiti s Gastro-eso phageal reflux disease without esophagiti s 09/03/2021 09/06/2021 [facility] Problem 09-03 18:48: 00 2021-09-06 00:08:27 2021-09-06 00:08:27 Catherine Wu Cough Cough 04/14/2018 10/28/2018 [facility] Problem 2017- 0-06 03:52: 42 2018-10-28 14:11:30 2018-10-28 14:11:30 Catherine Wu Social History Social Habit Start Date Stop Date Quantity Comments Source Social History 2021-08-30 18:25:55 2021-08-30 18:25:55 Aurora Wu Sex Ass[birth year] At 1955 00:00:00 1955 00:00:00 [facility] Smoking Status Start Date Stop Date Source Tobacco smoking consumption unknown [facility] Medications Ordered Medication Name Filled Medication Name Start Date Stop Date Current Medication? Ordering Clinician Indication Dosage Frequency Signature (SIG) Comments Components Source Hydralazine 09-03 19:11: 00 No 10 mg, Route: IVP, Q20Min, Dosing Weight 65.2, kg, PRN Elevated BP, Start date: 09/03/21 13:11:00 [employer] OPERATOR, Duration: 2 doses or times, Stop date: Limited # of times Catherine Wu Labetalol 09-03 19:11: 00 No 10 mg, Route: IVP, Q5Min, Dosing Weight 65.2, kg, PRN Elevated BP, Start date: 09/03/21 13:11:00 [employer]INE OPERATOR, Duration: 5 doses or times, Stop date: Limited # of times Catherine Wu Fentanyl 09-03 19:11: 00 No 25 microgram, Route: IVP, Q15Min, Dosing Weight 65.2, kg, PRN Pain Score 4-6, Priority: Routine, Start date: 09/03/21 13:11:00 [employer] MACHINE OPERATOR, Duration: 4 doses or times, Stop date: Limited # of times Catherine Wu Hydromorpho ne 09-03 19:11: 00 No 0.5 mg, Route: IVP, Q20Min, Dosing Weight 65.2, kg, PRN Pain Score 7-10, Start date: 09/03/21 13:11:00 [employer] MACHINE OPERATOR, Duration: 4 doses or times, Stop date: Limited # of times Catherine Wu Flumazenil 09-03 19:11: 00 No 0.2 mg, Route: IVP, PRN, Dosing Weight 65.2, kg, PRN Benzodiaze pine Reversal, Initial dose, Start date: 09/03/21 13:11:00 [employer] MACHINE OPERATOR, Duration: 30 day, Stop date: 10/03/21 14:10:00 CDT Catherine Wu Naloxone 09-03 19:11: 00 No 0.4 mg, Route: IVP, Q2MIN, Dosing Weight 65.2, kg, PRN Narcotic Reversal, Start date: 09/03/21 13:11:00 [employer] MACHINE OPERATOR, Duration: 8 doses or times, Stop date: Limited # of times Catherine Wu Albuterol 0.83 MG/ML Inhalant Solution 09-03 19:11: 00 No 2.49 mg, Route: NEB, Q20Min, Dosing Weight 65.2, kg, PRN Wheezing, Start date: 09/03/21 13:11:00 [employer] MACHINE OPERATOR, Duration: 30 day, Stop date: 10/03/21 14:10:00 CDT Catherine Wu Ondansetron 09-03 19:11: 00 No 4 mg, Route: IVP, ONCE, Dosing Weight 65.2, kg, PRN Nausea & Vomiting, Start date: 09/03/21 13:11:00 [employer] MACHINE OPERATOR Catherine Wu Promethazin e 09-03 19:11: 00 No 6.25 mg, Route: IVPB, ONCE, Dosing Weight 65.2, kg, PRN Nausea & Vomiting, Start date: 09/03/21 13:11:00 [employer] MACHINE OPERATOR Catherine Wu Simethicone 09-03 19:11: 00 No 40 mg, Route: PO, Drug form: DROP, ONCE, Dosing Weight 65.2, kg, PRN Gas, Start date: 09/03/21 13:11:00 [employer] MACHINE OPERATOR Catherine Wu Benzocaine 15 MG / Menthol 3.6 MG Lozenge [Cepacol Sore Throat Pain Relief 15/3.6] 09-03 19:11: 00 No 1 lozenge, Route: MUCOUS MEM, Drug Form: SANDRA, Dosing Weight 65.2, kg, Q2H, PRN Sore Throat, Start date: 09/03/21 13:11:00 [employer] MACHINE OPERATOR, Duration: 30 day, Stop date: 10/03/21 13:10:00 CDT Catherine Wu lidocaine ([facility]) 09-03 18:49: 00 No Route: IV, Drug form: INJ, ONCE, Stop date: 09/03/21 12:49:00 [employer] MACHINE OPERATOR Catherine Wu propofol ([facility]) 09-03 18:49: 00 No Route: IV, Drug form: INJ, ONCE, Stop date: 09/03/21 12:49:00 [employer] MACHINE OPERATOR Catherine Wu succinylcho line ([facility]) 09-03 18:49: 00 No Route: IV, Drug form: INJ, ONCE, Stop date: 09/03/21 12:49:00 [employer] MACHINE OPERATOR Catherine uW fentaNYL ([facility]) 09-03 18:49: 00 No Route: IV, Drug form: INJ, ONCE, Stop date: 09/03/21 12:49:00 [employer] MACHINE OPERATOR Catherine Wu ondansetron ([facility]) 09-03 18:49: 00 No Route: IV, Drug form: INJ, ONCE, Stop date: 09/03/21 12:49:00 [employer] MACHINE OPERATOR Catherine Wu dexamethaso ne ([facility]ES) 09-03 18:49: 00 No Route: IV, Drug form: INJ, ONCE, Stop date: 09/03/21 12:49:00 [employer] MACHINE OPERATOR Catherine Wu ePHEDrine ([facility]ES) 09-03 18:49: 00 No Route: IV, Drug form: INJ, ONCE, Stop date: 09/03/21 12:49:00 [employer] MACHINE OPERATOR Radhatasha rhonda Wu phenylephri ne (ANES) 09-03 18:46: 00 No Route: IV, Drug form: INJ, ONCE, Stop date: 09/03/21 12:46:00 [employer] MACHINE OPERATOR Catherine rhonda Wu Isolyte S PH 7.4 (ANES) 1000 mL 09-03 17:55: 00 No Route: IV, Total Volume: 1,000, Start date: 09/03/21 11:55:00 BL[employer] STAP[employer]ING MACHINE OPERATOR, Stop date: 09/03/21 12:55:00 [employer] STAP[employer]ING MACHINE OPERATOR Catherine Wu Labetalol 2020-07 20:47: 00 No 10 mg, Route: IV, ONCE, Dosing Weight 66.818, kg, Start date: 06/14/21 14:47:00 [employer] MACHINE OPERATOR, Stop date: 06/14/21 14:47:00 [employer] MACHINE OPERATOR Catherine Wu Acetaminoph en 2020-07 20:44: 00 No Notes: Max acetaminop hen 4000 mg/day (4 gm/day). (Same as: Tylenol Extra Strength) Catherine Wu Fentanyl 2020-07 20:44: 00 No Notes: (Same as: Sublimaze) Preservati ve free. Catherine Wu Hydromorpho ne 2020-07 20:44: 00 No Notes: Same as Dilaudid Memtasha Wu Flumazenil 2020-07 20:44: 00 No Notes: (Same as: Romazicon) Catherine Wu Naloxone 2020-07 20:44: 00 No Notes: Same as Narcan Catherine Wu Meperidine 2020-07 20:44: 00 No Notes: (Same as: Demerol) "Use Precaution in Elderly, Seizure disorders, and Renal impairment " Catherine Wu Ondansetron 2020-07 20:44: 00 No Notes: (Same as: Zofran) MEDICATION WASTE Product Size: 4 mg Product Wasted: ___ mg Catherine Wu Sucralfate 100 MG/ML Oral Suspension [Carafate] 04-07 21:58: 00 Yes 1 gm = 10 ml, PO, QID-Before Meals, # 400 ml, 0 Refill(s) Catherine Wu Fluoxetine 40 MG Oral Capsule [Prozac] 03-31 16:29: 00 Yes 40 mg = 1 cap, PO, Daily, # 30 cap, 0 Refill(s) Memoria rhonda Wu Amphetamine aspartate 7.5 MG / Amphetamine Sulfate 7.5 MG / Dextroamphe tamine saccharate 7.5 MG / Dextroamphe tamine Sulfate 7.5 MG Oral Tablet [Adderall] 03-29 18:00: 00 No 30 mg = 1 tab, PO, BID, 0 Refill(s) Catherine Wu Albuterol 0.833 MG/ML / Ipratropium [place] 0.167 MG/ML Inhalant Solution 03-29 18:00: 00 Yes 3 mL, NEB, QID, 0 Refill(s) Catherine Wu Lorazepam 1 MG Oral Tablet 03-29 17:59: 00 No 1 mg = 1 tab, PO, TID, 0 Refill(s) Catherine Wu Sucralfate 1000 MG Oral Tablet [Carafate] 01-22 00:09: 00 Yes 1 gm = 1 tab, PO, QID-Before Meals, # 120 tab, 0 Refill(s), Pharmacy: [facility], 167.64, cm, 01/19/21 22:09:00 CDT, Height, 71.002, kg, 01/19/21 22:09:00 CDT, Weight Radhaoria rhonda Wu pantoprazol e 40 MG Enteric Coated Tablet [Protonix] 01-22 00:08: 00 Yes 40 mg = 1 tab, PO, BID, # 42 tab, 0 Refill(s), Pharmacy: [facility] 149, 167.64, cm, 01/19/21 22:09:00 CDT, Height, 71.002, kg, 01/19/21 22:09:00 CDT, Weight Memtasha Wu Calcium Gluconate 01-21 14:00: 00 No Notes: Contains: calcium gluconate 20mg/mL NaCl 0.67% 50mL WASTE: F/P - Sink; E - [employer] Catherine Wu 1 ML denosumab 60 MG/ML Prefilled Syringe [Prolia] 01-20 03:37: 00 Yes 60 mg = 1 mL, SUB-Q, ONCE, Repeat every 6 months, # 1 mL, 0 Refill(s) Catherine Brownann Amphetamine aspartate 7.5 MG / Amphetamine Sulfate 7.5 MG / Dextroamphe tamine saccharate 7.5 MG / Dextroamphe tamine Sulfate 7.5 MG Oral Tablet [Adderall] 01-20 03:36: 00 Yes 30 mg = 1 tab, PO, BID, # 60 tab, 0 Refill(s) Radhatasha Brownann Fluoxetine 40 MG Oral Capsule [Prozac] 01-20 03:36: 00 Yes 40 mg = 1 cap, PO, Daily, # 30 cap, 0 Refill(s) Catherine Brownann Hydrochloro thiazide 01-20 03:32: 00 Yes 25 mg, PO, Daily, 0 Refill(s) Catherine rhonda Wu Lorazepam 1 MG Oral Tablet [Ativan] 01-20 03:31: 00 Yes 1 mg = 1 tab, PO, Q8H, PRN Anxiety, # 30 tab, 0 Refill(s) Catherine Brownann D5NS 1,000 mL 01-20 02:12: 00 No 1,000 mL, Rate: 75 ml/hr, Infuse over: 13.3 hr, Route: IV, Dosing Weight 68.636 kg, Total Volume: 1,000, Start date: 01/19/21 21:12:00 CDT, Duration: 30 day, Stop date: 02/18/21 21:11:00 CDT, BSA: 1.81 m2, 0 Radhatasha rhonda Wu Zofran 01-19 23:06: 00 No Notes: (Same as: Tessaan) MEDICATION WASTE Product Size: 4 mg Product Wasted: ___ mg Catherine Wu Glucagon 01-19 21:46: 00 No 1 mg, Route: IM, Drug form: PDR/INJ, PRN, Dosing Weight 68.636, kg, PRN Blood Glucose Results, Start date: 01/19/21 16:46:00 CDT, Duration: 30 day, Stop date: 02/18/21 16:45:00 CDT, 0 Catherine Wu Ondansetron 01-19 21:46: 00 No Notes: (Same as: Alberto) MEDICATION WASTE Product Size: 4 mg Product Wasted: ___ mg Catherine Wu pantoprazol e additive 80 mg + Sodium Chloride 0.9% IV 100 mL 01-19 21:07: 00 No Notes: For IV push reconstitu te with 10 ml 0.9% sodium chloride and push over 2 minutes. (Same as: Protonix) Catherine Wu Protonix 01-19 21:07: 00 No Notes: For IV push reconstitu te with 10 ml 0.9% sodium chloride and push over 2 minutes. (Same as: Protonix) Catherine Wu Sodium Chloride 0.9% (titrate) 250 mL 01-19 20:55: 00 No 250 mL, Rate: To prime line and flush remaining blood products., Dosing Weight 68.636, kg, Route: IV, Total Volume: 250, Start Date: 01/19/21 15:55:00 CDT, Duration: 1 day, Stop date: 01/20/21 15:54:00 CDT, Replace Every: 24 hr, 0 Catherine Wu Saline Flush 0.9% 01-19 17:38: 00 No Notes: (Same as: BD Posiflush) Catherine Wu Vital Signs Vital Name Observation Time Observation Value Comments [facility] Heart Rate 2022-02-16 [facility]:00[facility]-02-16 [facility] Di[facility] ([facility]) 2022-02-16 20:00:00 [facility] Height 2022-02-16 20:00:00 167.64 cm [facility] Weight 2022-02-16 20:00:00 [facility] BMI Calculated 2022-02-16 20:00:00 [facility] Height 2021-12-10 18:48:00 167.64 cm [facility] Weight 2021-12-10 18:48:00 [facility] BMI Calculated 2021-12-10 18:48:00 [facility] Heart Rate 2021-10-29 14:02:06 [facility] Respitory Rate 2021-10-29 14:02:06 [facility] Systolic (mm Hg) 2021-10-29 14:01:57 [facility] Diastolic (mm Hg) 2021-10-29 14:01:57 [facility] Heart Rate 2021-10-29 14:01:57 [facility] Systolic (mm Hg) 2021-10-29 12:46:31 [facility] Diastolic (mm Hg) 2021-10-29 12:46:31 [facility] Heart Rate 2021-10-29 12:46:31 [facility] Systolic (mm Hg) 2021-10-29 12:44:47 [facility] Diastolic (mm Hg) 2021-10-29 12:44:47 [facility] Respitory Rate 2021-09-03 19:45:00 [facility] Systolic (mm Hg) 2021-09-03 19:45:00 [facility] Diastolic (mm Hg) 2021-09-03 19:45:00 [facility] Respitory Rate 2021-09-03 19:30:00 [facility] Systolic (mm Hg) 2021-09-03 19:30:00 [facility] Diastolic (mm Hg) 2021-09-03 19:30:00 [facility] Respitory Rate 2021-09-03 19:15:00 [facility] Systolic (mm Hg) 2021-09-03 19:15:00 [facility] Diastolic (mm Hg) 2021-09-03 19:15:00 [facility] Heart Rate 2021-09-03 18:54:00 [facility] Height 2021-09-03 15:50:00 167.64 cm [facility] Weight 2021-09-03 15:50:00 [facility] BMI Calculated 2021-09-03 15:50:00 [facility] Heart Rate 2021-09-03 15:50:00 [facility] Height 2021-08-30 18:35:00 167.64 cm [facility] Weight 2021-08-30 18:35:00 [facility] BMI Calculated 2021-08-30 18:35:00 [facility] Respitory Rate 2021-06-14 20:55:00 [facility] Systolic (mm Hg) 2021-06-14 20:55:00 [facility] Diastolic (mm Hg) 2021-06-14 20:55:00 [facility] Respitory Rate 2021-06-14 20:40:00 [facility] Systolic (mm Hg) 2021-06-14 20:40:00 [facility] Diastolic (mm Hg) 2021-06-14 20:40:00 [facility] Respitory Rate 2021-06-14 20:25:00 [facility] Systolic (mm Hg) 2021-06-14 20:25:00 [facility] Diastolic (mm Hg) 2021-06-14 20:25:00 [facility] Heart Rate 2021-06-11 17:00:00 [facility] Respitory Rate 2021-06-11 17:00:00 [facility] Systolic (mm Hg) 2021-06-11 17:00:00 [facility] Diastolic (mm Hg) 2021-06-11 17:00:00 [facility] Height 2021-06-11 16:40:00 166.37 cm [facility] Weight 2021-06-11 16:40:00 [facility] BMI Calculated 2021-06-11 16:40:00 [facility] Respitory Rate 2021-04-12 21:00:00 [facility] Systolic (mm Hg) 2021-04-12 21:00:00 [facility] Diastolic (mm Hg) 2021-04-12 21:00:00 [facility] Respitory Rate 2021-04-12 20:40:00 [facility] Systolic (mm Hg) 2021-04-12 20:40:00 [facility] Diastolic (mm Hg) 2021-04-12 20:40:00 [facility] Respitory Rate 2021-04-12 19:35:00 [facility] Systolic (mm Hg) 2021-04-12 19:35:00 [facility] Diastolic (mm Hg) 2021-04-12 19:35:00 [facility] Heart Rate 2021-04-09 18:30:00 [facility] Respitory Rate 2021-04-09 18:30:00 [facility] Systolic (mm Hg) 2021-04-09 18:30:00 [facility] Diastolic (mm Hg) 2021-04-09 18:30:00 [facility] Height 2021-04-09 18:29:00 167.64 cm [facility] Weight 2021-04-09 18:29:00 [facility] BMI Calculated 2021-04-09 18:29:00 [facility] Respitory Rate 2021-03-31 19:55:00 [facility] Respitory Rate 2021-03-31 19:45:00 [facility] Systolic (mm Hg) 2021-03-31 19:45:00 [facility] Diastolic (mm Hg) 2021-03-31 19:45:00 [facility] Respitory Rate 2021-03-31 19:30:00 [facility] Systolic (mm Hg) 2021-03-31 19:30:00 [facility] Diastolic (mm Hg) 2021-03-31 19:30:00 [facility] Systolic (mm Hg) 2021-03-31 19:15:00 [facility] Diastolic (mm Hg) 2021-03-31 19:15:00 [facility] Heart Rate 2021-03-29 16:26:19 [facility] Heart Rate 2021-03-29 16:24:51 [facility] Height 2021-03-29 16:21:00 166.37 cm [facility] Weight 2021-03-29 16:21:00 [facility] BMI Calculated 2021-03-29 16:21:00 [facility] Temperature Oral (F) 2021-03-29 16:00:00 98 F [facility] Heart Rate 2021-01-21 20:10:23 [facility] Respitory Rate 2021-01-21 20:10:23 [facility] Systolic (mm Hg) 2021-01-21 20:09:55 [facility] Diastolic (mm Hg) 2021-01-21 20:09:55 [facility] Heart Rate 2021-01-21 20:09:55 [facility] Temperature Oral (F) 2021-01-21 20:09:39 99 F [facility] Heart Rate 2021-01-21 16:03:34 [facility] Respitory Rate 2021-01-21 16:03:34 [facility] Systolic (mm Hg) 2021-01-21 16:03:03 [facility] Diastolic (mm Hg) 2021-01-21 16:03:03 [facility] Temperature Oral (F) 2021-01-21 16:02:47 98.5 F [facility] Temperature Oral (F) 2021-01-21 13:04:00 98.4 F [facility] Respitory Rate 2021-01-21 13:04:00 [facility] Systolic (mm Hg) 2021-01-21 13:04:00 [facility] Diastolic (mm Hg) 2021-01-21 13:04:00 [facility] Height 2021-01-20 03:09:00 167.64 cm [facility] Weight 2021-01-20 03:09:00 [facility] BMI Calculated 2021-01-20 03:09:00 [facility] Height 2021-01-19 17:36:00 170.18 cm [facility] BMI Calculated 2021-01-19 17:36:00 [facility] Weight 2021-01-19 17:36:00 [facility] Procedures Procedure Date / Time Performed Performing Clinician Source [facility] 2022-02-24 14:26:23 Abdon Green [facility] EGD - Esophagogastroduodenoscopy [facility] Encounters Start Date/Time End Date/Time Encounter Type Admission Type Attending Clinicians Care Facility Care Department Encounter ID Source 2022-04-18 12:03:[address] [facility] [id number] [facility] 2022-01-28 01:05:27 Outpatient JOSLYN CREWS [facility] [id number] [facility] 2021-12-03 01:03:38 Outpatient ANA العراقي [facility] [id number] [facility] 2021-10-20 08:43:20 Outpatient [facility] [id number] [facility] 2021-07-16 11:28:18 Outpatient ANA العراقي [facility] [id number] [facility] 2024-04-27 09:46:51 2024-04-27 23:59:00 Outpatient Elective [facility] [id number] [facility] 2024-04-27 09:43:12 2024-04-27 23:59:00 Outpatient Elective [facility] [id number] [facility] 2023-02-24 10:58:00 2023-02-24 23:59:00 Outpatient DOLORES DE LEON [facility] [id number] [facility] 2022-07-20 08:09:00 2022-07-20 15:53:00 Outpatient [facility]H [facility] MAYRA [id number] Catherine Alexander [facility] 2022-02-21 13:44:00 2022-02-22 04:59:00 Outpatient nullFlavo r [facility] [id number] Catherine Wu 2022-02-21 08:44:00 2022-02-21 23:59:00 Outpatient GREENABDON STEVE [facility] CAR [id number] [facility] 2022-02-16 19:29:00 2022-02-17 04:59:00 Outpatient nullFlavo r [facility] [id number] Catherine Wu 2022-02-16 14:29:00 2022-02-16 23:59:[address] [facility] CAR [id number] [facility] 2022-02-16 14:30:00 2022-02-16 14:30:00 Office Visit ABDON GREEN EXT [facility] LOCATION [id number] [facility] 2021-12-10 17:55:00 2021-12-11 04:59:00 Outpatient nullFlavo r [facility] [id number] Catherine ellis [facility] 2021-12-10 12:55:00 2021-12-10 23:59:00 Outpatient TAMMY GARY [facility] PUL [id number] [facility] 2021-10-29 12:28:00 2021-10-29 12:28:00 Bedded Outpatient nullFlavo r [facility] [id number] Radhatasha [facility] 2021-10-29 07:28:00 2021-10-29 09:02:00 Outpatient JOSLYN CREWS [facility] [id number] [facility] 2021-10-26 15:00:00 2021-10-27 04:59:59 [id number] 2021-09-03 14:07:00 2021-09-04 05:59:00 Day Surgery nullFlavo r [facility] [id number] 2021-09-03 08:07:00 2021-09-03 23:59:00 Outpatient ANA العراقي [facility] [id number] [facility] 2021-09-03 16:00:00 2021-09-03 16:00:00 Day Surgery nullFlavo r [facility] [id number] Radhatasha [facility] 2021-08-30 19:10:00 2021-08-31 05:59:59 Outpatient [facility]Flavo r [facility] [id number] Catherine Wu 2021-07-20 19:49:00 2021-07-21 05:59:00 Outpatient nullFlavo r [facility] [id number] Catherine Wu 2021-07-20 13:49:00 2021-07-20 23:59:00 Outpatient ANA العراقي [facility] [id number] [facility] 2021-06-14 18:08:00 2021-06-14 22:28:00 Day Surgery nullFlavo r [facility] [id number] [facility] 2021-06-14 12:08:00 2021-06-14 16:28:00 [id number] 2021-04-12 19:00:00 2021-04-12 21:09:00 Day Surgery nullFlavo r [facility] [id number] [facility] 2021-04-12 14:00:00 2021-04-12 16:09:00 Outpatient LAINA ASHTON [facility] [id number] [facility] 2021-03-31 16:20:00 2021-03-31 20:03:00 Day Surgery nullFlavo r [facility] [id number] Radhatasha rhonda Wu 2021-03-31 11:20:00 2021-03-31 15:03:00 Outpatient LAINA ASHTON [facility] [id number] [facility] 2021-01-19 17:19:00 2021-01-22 01:04:00 Inpatient nullFlavo r [facility] [id number] Radhatasha rhonda Wu 2021-01-19 16:18:00 2021-01-21 20:04:00 Inpatient E MARY RODRIGUEZ [facility] PUL [id number] [facility] 2020-11-10 16:52:00 2020-11-11 04:59:00 Outpatient nullFlavo r [facility] [id number] Radhaoria rhonda Wu 2020-11-10 11:52:00 2020-11-10 23:59:00 Outpatient DOLORES DE LEON N [facility] [id number] [facility] 2020-11-03 15:26:00 2020-11-04 04:59:00 Outpatient nullFlavo r [facility] [id number] Radhaoria rhonda Wu 2020-11-03 10:26:00 2020-11-03 23:59:00 Outpatient DOLORES DE LEON N MED [id number] [facility] 2018-04-10 15:09:00 2018-04-11 04:59:00 Outpatient nullFlavo r [facility] [id number] Catherine ellis [facility] 2017-04-18 18:58:00 2017-04-19 04:59:00 Outpatient nullFlavo r [facility] [id number] Catherine Brownann 2017-02-22 15:11:00 2017-02-23 04:59:00 Outpatient nullFlavo r [facility] [id number] Catherine Wu Results Test Description Test Time Test Comments Results Result Co mments Source [facility]K7107[facility] 15:10:00* Test Item Value Reference Range Interpretation Comme nts Coronavirus (COVID-19) YARELY (test code = Coronavirus (COVID-19) YARELY) Not Detected *NA*(10/26/21 10:10 AM) [facility]2022-02-25 16:06:00* Test Item Value Reference Range Interpretation Comme nts Glucose Lvl (test code = Glucose Lvl) 104 70-99 [facility]kw[facility]UGJYRNDHIZ1868-01-41 16:06:00* Test Item Value Reference Range Interpretation Comme nts WBC (test code = WBC) 5.9 3.7-10.4 [facility] CenterTimmmaqNRYWHYNDIT6100-58-15 19:02:00* Test Item Value Reference Range Interpretation Comme nts Coronavirus (COVID-19) YARELY (test code = Coronavirus (COVID-19) YARELY) Not Detected *NA*(08/30/21 1:02 PM) [facility]2021-12-03 16:40:00* Test Item Value Reference Range Interpretation Comme nts Glucose Lvl (test code = Glucose Lvl) 95 70-99 [facility] CenterSiklctlJOQFBGOXAL5009-27-39 16:40:00* Test Item Value Reference Range Interpretation Comme nts WBC (test code = WBC) 4.9 3.7-10.4 [facility] CenterGnoiknzDRSFGOYHYQ8088-28-29 16:40:00* Test Item Value Reference Range Interpretation Comme nts Coronavirus (COVID-19) YARELY (test code = Coronavirus (COVID-19) YARELY) Not Detected *NA*(06/11/21 10:40 AM) [place] [id number] 18:33:00* Test Item Value Reference Range Interpretation Comme nts Coronavirus (COVID-19) YARELY (test code = Coronavirus (COVID-19) YARELY) Not Detected *NA*(04/09/21 1:33 PM) [facility] [id number] 16:29:00* Test Item Value Reference Range Interpretation Comme nts Glucose Lvl (test code = Glucose Lvl) 92 70-99 [facility] CenterZlkwuurVTUVKQHUSW3250-68-26 16:29:00* Test Item Value Reference Range Interpretation Comme nts WBC (test code = WBC) 5.5 3.7-10.4 [facility] CenterGhwwjlsRMZRNEFKWC8154-05-71 16:29:00* Test Item Value Reference Range Interpretation Comme nts Coronavirus (COVID-19) YARELY (test code = Coronavirus (COVID-19) YARELY) Not Detected *NA*(03/29/21 11:29 AM) [facility] [id number] 10:13:00* Test Item Value Reference Range Interpretation Comme nts Glucose Lvl (test code = Glucose Lvl) 79 70-99 [facility] CenterXvgciliTBYDUALILW3300-05-53 09:18:00* Test Item Value Reference Range Interpretation Comme nts WBC (test code = WBC) 3.8 3.7-10.4 [facility] [id number] 09:25:00* Test Item Value Reference Range Interpretation Comme nts Glucose Lvl (test code = Glucose Lvl) 107 70-99 [facility] CenterWczvtwjSKDBIQLAJJ9141-31-47 09:25:00* Test Item Value Reference Range Interpretation Comme nts WBC (test code = WBC) 5.0 3.7-10.4 [facility] [id number] 02:07:00* Test Item Value Reference Range Interpretation Comme nts RBC product (test code = RBC product) Product available 4(01/19/21 9:07 PM) [facility] SystemToflafnEFSXRBDJDS8026-13-10 21:49:00* Test Item Value Reference Range Interpretation Comme nts Coronavirus (COVID-19) YARELY (test code = Coronavirus (COVID-19) YARELY) Not Detected (01/19/21 4:49 PM) [facility] [employer] [id number] 20:55:00* Test Item Value Reference Range Interpretation Comme nts RBC product (test code = RBC product) Product available 5(01/19/21 3:55 PM) [facility] [id number] 18:06:00* Test Item Value Reference Range Interpretation Comme nts ABO/Rh (test code = ABO/Rh) O POS [facility] CenterCHEM [id number] 18:06:00* Test Item Value Reference Range Interpretation Comme nts Glucose Lvl (test code = Glucose Lvl) 106 70-99 [facility] CenterTcvzyfmICSSREMQPE2539-07-20 18:06:00* Test Item Value Reference Range Interpretation Comme nts WBC (test code = WBC) 6.9 3.7-10.4 [facility] CenterURINE AND [id number] 18:06:00* Test Item Value Reference Range Interpretation Comme nts UA Color (test code = UA Color) Light Yellow *NA*(01/19/21 1:06 PM) [facility] CenterRadiologic examination, chest; 2 viewsCLINICAL INDICATION: R05 CoughTECHNIQUE: PA and lateral views of the chest.FINDINGS: Comparison study: No previous examination.The lungs are clear. There are no infiltrates or effusions.The cardiac silhouette is unremarkable. The sukhjinder and mediastinum are intact.The regional skeleton is intact.IMPRESSION:No active process.
--- NOTE | 2025-02-15 14:02 | RAD REPORT ---
EXAMINATION: TWO VIEW CHEST XR CLINICAL INDICATION: Female, 69 years old. [facility] MAIN Cough;Chest pain Bed: TECHNIQUE: 2 view radiographs of the chest were performed. COMPARISON: 02/27/2022. FINDINGS: The lungs are well inflated and clear. No pneumothorax or sizable effusion. The heart is normal in si ze. Mediastinal contours are unremarkable. IMPRESSION: No acute or significant abnormalities.
--- NOTE | 2025-02-15 15:23 | ER ---
Nurse's Notes [facility] Name: Tammy Bess Age: 69 yrs Sex: Female : 1955 Arrival Date: 02/15/2025 Time: 12:23 Bed DX4 Private MD: Diagnosis: SARS-associated coronavirus as the cause of diseases classified elsewhere Presentation: 02/15 12:55 Chief complaint: Patient states: Cough, congestion since Monday. Some SOB now, but way ll1 better overall. Coronavirus screen: Client denies travel out of the [place] in the last 14 days. congestion, cough unrelated to allergies, fatigue, Client presents with at least one sign or symptom that may indicate coronavirus-19. Standard/surgical mask placed on the client. Ebola Screen: Patient denies travel to an Ebola-affected area in the 21 days before illness onset. Initial Sepsis Screen: Does the patient meet any 2 criteria? No. Patient's initial sepsis screen is negative. Does the patient have a suspected source of infection? No. Patient's initial sepsis screen is negative. Risk Assessment: Do you want to hurt yourself or someone else? Patient reports no desire to harm self or others. Onset of symptoms was February 10, 2025. 12:55 Method Of Arrival: Ambulatory ll1 12:55 Acuity: NASIM 4 ll1 Triage Assessment: 12:55 General: Appears in no apparent distress. Behavior is calm, cooperative, appropriate ll1 for age. General: Reports wants to make sure she doesn't have pneumonia. Pain: Denies pain. Respiratory: Reports cough that is. Historical: - Allergies: 12:54 No Known Allergies; ll1 - PMHx: 12:54 Hypertensive disorder; hiatal hernia; Asthma; ll1 - PSHx: 12:54 hernia repair (Asthma); ll1 - Immunization history:: Adult Immunizations up to date. - Infectious Disease History:: Denies. - Social history:: Smoking status: Patient denies any tobacco usage or history of. Screenin:26 [facility] ED Fall Risk Assessment (Adult) History of falling in the last 3 months, ll1 including since admission No falls in past 3 months (0 pts) Confusion or Disorientation No (0 pts) Intoxicated or Sedated No (0 pts) Impaired Gait No (0 pts) Mobility Assist Device Used No (0 pt) Altered Elimination No (0 pt) Score/Fall Risk Level 0 - 2 = Low Risk Maintained a safe environment, Hourly rounding (assess needs \T\ fall precautionary measures) done. Abuse screen: Denies threats or abuse. Nutritional screening: No deficits noted. Tuberculosis screening: No symptoms or risk factors identified. Assessment: 15:26 Reassessment: No changes from previously documented assessment. Patient and/or family ll1 updated on plan of care and expected duration. Pain level reassessed. Vital Signs: 12:55 BP 169 / 109; Pulse 99; Resp 17; Temp 97.3; Pulse Ox 100% ; Weight 63.5 kg; Height 5 ll1 ft. 6 in. ; Pain 0/10; 12:55 Body Mass Index 22.60 (63.50 kg, 167.64 cm) ll1 12:55 Pain Scale: Adult ll1 ED Course: 12:28 Patient arrived in ED. gl 12:28 Shamar Hammond FNP-C is PHCP. dr5 12:29 Susana Dale is Attending Physician. dr5 12:54 Arm band placed on. ll1 12:55 Patient has correct armband on for positive identification. Provided Education on: ER ll1 procedures and process. 12:58 Triage completed. ll1 13:26 Chest Pa And Lat (2 Views) XRAY In Process Unspecified. EDMS 14:38 Patient placed in an exam room, on a stretcher. jl7 15:26 No provider procedures requiring assistance completed. Patient did not have IV access ll1 during this emergency room visit. Administered Medications: No medications were administered Medication: 15:50 VIS not applicable for this client. ll1 Outcome: 15:22 Discharge ordered by MD. dr5 15:26 Patient left the ED. ll1 15:26 Discharged to home ambulatory, ll1 15:26 Condition: stable 15:26 Discharge instructions given to patient, Instructed on discharge instructions, follow up and referral plans. no drinking with medication, no driving heavy equipment, medication usage, Demonstrated understanding of instructions, follow-up care, medications, Prescriptions given X 3, Signatures: Dispatcher [employer] EDMS Kimmie Reyes RN RN jl7 Deonte Trimble RN RN ll1 Shamar Hammond FNP-C CPS TEAM LEAD-Cdr5 Jenae Morillo, Reg Reg gl
--- NOTE | 2025-02-15 15:23 | EDPHYS ---
Physician Documentation [facility] Name: Tammy Bess Age: 69 yrs Sex: Female : 1955 Arrival Date: 02/15/2025 Time: 12:23 Bed DX4 Private MD: ED Physician Susana Dale HPI: 02/15 18:18 This 69 yrs old Female presents to ER via Ambulatory with complaints of Chest dr5 Congestion, TESTED POSITIVE FOR COVID. 18:18 Onset: The symptoms/episode began/occurred acutely. Patient is a 69-year-old female dr5 with history of hypertension and asthma coming in with cough and congestion that started last Monday. Patient reports that she took a home test and was COVID-positive. Patient states that she has gotten pneumonia quick in the past and is fearful that she may have developed pneumonia. Patient denies fever, chest pain, abdominal pain.. Historical: - Allergies: 12:54 No Known Allergies; ll1 - PMHx: 12:54 Hypertensive disorder; hiatal hernia; Asthma; ll1 - PSHx: 12:54 hernia repair (Asthma); ll1 - Immunization history:: Adult Immunizations up to date. - Infectious Disease History:: Denies. - Social history:: Smoking status: Patient denies any tobacco usage or history of. ROS: 18:18 Constitutional: as per hpi dr5 Exam: 18:18 Constitutional: This is a well developed, well nourished patient who is awake, alert, dr5 and in no acute distress. Head/Face: Normocephalic, atraumatic. Eyes: Pupils equal round and reactive to light, extra-ocular motions intact. Lids and lashes normal. Conjunctiva and sclera are non-icteric and not injected. Cornea within normal limits. Periorbital areas with no swelling, redness, or edema. Neck: Trachea midline, no thyromegaly or masses palpated, and no cervical lymphadenopathy. Supple, full range of motion without nuchal rigidity, or vertebral point tenderness. No Meningismus. Chest/axilla: Normal chest wall appearance and motion. Nontender with no deformity. No lesions are appreciated. Cardiovascular: Regular rate and rhythm with a normal S1 and S2. Normal PMI, no JVD. No pulse deficits. Respiratory: Lungs have equal breath sounds bilaterally, clear to auscultation. No rales, rhonchi or wheezes noted. No increased work of breathing, no retractions or nasal flaring. Back: No spinal tenderness. No costovertebral tenderness. Full range of motion. Skin: Warm, dry with normal turgor. Normal color with no rashes, no lesions, and no evidence of cellulitis. MS/ Extremity: Pulses equal, no cyanosis. Neurovascular intact. Full, normal range of motion. Neuro: Awake and alert, GCS 15, oriented to person, place, time, and situation. Cranial nerves II-XII grossly intact. Motor strength 5/5 in all extremities. Sensory grossly intact. Cerebellar exam normal. Normal gait. Vital Signs: 12:55 BP 169 / 109; Pulse 99; Resp 17; Temp 97.3; Pulse Ox 100% ; Weight 63.5 kg; Height 5 ll1 ft. 6 in. ; Pain 0/10; 12:55 Body Mass Index 22.60 (63.50 kg, 167.64 cm) ll1 12:55 Pain Scale: Adult ll1 MDM: 12:29 Medical Screening Exam initiated dr5 18:18 Differential diagnosis: viral Infection, bacterial infection, URI, pneumonia. Data dr5 reviewed: vital signs, nurses notes, radiologic studies, plain films. Consideration of Admission/Observation Escalation of care including admission/observation considered. Escalation considered patient found to have pneumonia requiring oxygen.. Care significantly affected by the following chronic conditions: Hypertension, Asthma. Care significantly affected by the following Social Determinants of Health: Poor access to healthcare and/or lack of insurance, Poor access to transportation, Problems related to employment. Counseling: I had a detailed discussion with the patient and/or guardian regarding the historical points, exam findings, and any diagnostic results supporting the discharge/admit diagnosis, the presence of at least one elevated blood pressure reading (>120/80) during this emergency department visit, radiology results, the need for outpatient follow up, for definitive care, a family practitioner, to return to the emergency department if symptoms worsen or persist or if there are any questions or concerns that arise at home. Special discussion: I have referred the patient to see his PCP for further evaluation of high blood pressure. I discussed with the patient/guardian in detail that at this point there is no indication for admission to the hospital. It is understood, however, that if the symptoms persist or worsen the patient needs to return immediately for re-evaluation. Based on the history and exam findings, there is no indication for further emergent testing or inpatient evaluation. I discussed with the patient/guardian the need to see the primary care provider for further evaluation of the symptoms. ED course: Lung sounds are clear. Patient speaking full sentences. Patient is concerned that she might develop pneumonia. Will give patient azithromycin, steroid pack, and cough decongestant medications. Patient agreed with plan. All question answered. Strict ER precautions given.. 02/15 12:29 Order name: Chest Pa And Lat (2 Views) XRAY; Complete Time: 14:04 dr5 Administered Medications: No medications were administered Disposition: 18:37 Co-signature as Attending Physician, Susana Dale I agree with the assessment ci and plan of care. I reviewed the patient's care provided by the Advanced Practice Provider and agree with the diagnosis and treatment plan. Disposition Summary: 02/15/25 15:22 Discharge Ordered Notes: Location: Home dr5 Condition: Stable dr5 Diagnosis - SARS-associated coronavirus as the cause of diseases classified elsewhere dr5 Followup: dr5 - With: Emergency Department - When: As needed - Reason: Worsening of condition Followup: dr5 - With: Private Physician - When: 1 - 2 days - Reason: Recheck today's complaints, Continuance of care, Re-evaluation by your physician Discharge Instructions: - Discharge Summary Sheet dr5 - COVID-19 dr5 Forms: - Medication Reconciliation Form dr5 - Antibiotic Education dr5 - Patient Portal Instructions dr5 - Leadership Thank You Letter dr5 Prescriptions: - Bromfed DM 2-30-10 mg/5 mL Oral syrup - administer 10 milliliter ORAL route every 12 hours as needed for allergy dr5 symptoms; 240 milliliter; Refills: 0, Product Selection Permitted - Zithromax Z-Olayinka 250 mg Oral Tablet - take 1 tablet ORAL route as directed for 5 days Day 1 - take two (2) tablets dr5 one time. Day 2, 3, 4 , 5 take one (1) tablet once daily.; 6 tablet; Refills: 0, Product Selection Permitted - Medrol (Olayinka) 4 mg Oral Tablets, Dose Pack - take 1 tablet ORAL route as directed - follow package instructions; 1 packet; dr5 Refills: 0, Product Selection Permitted Signatures: Dispatcher Medst Deonte Colon RN RN ll1 Susana Dale, Shamar, FLOOR TILING PROFESSIONAL-C FLOOR TILING PROFESSIONAL-Cdr5 Corrections: (The following items were deleted from the chart) COVID-19 Ag + Flu A+B Ag+I.LAB.BRZ ordered. EDMS EDMS Chest Pa And Lat (2 Views)+RAD.RAD.BRZ ordered. EDMS EDMS
[2025-02-15 15:44] VITALS: BP 169/109; TEMP 97.3; O2SAT 100
== END 2025-02-15 15:26 | disposition home or self-care (01) ==
LOC: ER 12:23
DX: U07.1 COVID-19 (principal)
CPT/HCPCS: 71046; 99283